=== PATIENT | female | born 1960 | race Two or more races ===

== ENCOUNTER 2017-07-30 13:32 | Inpatient (IN) | payer MEDICAID ==
[~2017-07-30] VITALS: Ht 157.5 cm; Wt 93.3 kg
[2017-07-30 15:08] VITALS: BP 95/59
[2017-07-30] MEDS ORDERED: SODIUM CHLORIDE 0.9% 1,000 ML IV SCH (16:00)
[2017-07-30] MEDS ORDERED: MELO15TA24 PO (16:05)
[2017-07-30] MEDS ORDERED: iron PO (16:05)
[2017-07-30] MEDS ORDERED: SUMA25TA3 PO (16:05)
[2017-07-30] MEDS ORDERED: GABA600T2 PO (16:05)
[2017-07-30] MEDS ORDERED: ZOLP10TA5 PO (16:05)
[2017-07-30] MEDS ORDERED: INSU100I28 SC (16:05)
[2017-07-30] MEDS ORDERED: ESOM40CA PO (16:05)
[2017-07-30] MEDS ORDERED: SERT100T5 PO (16:05)
[2017-07-30] MEDS ORDERED: MORP45CP4 PO (16:05)
[2017-07-30] MEDS ORDERED: PROM25TA10 PO (16:05)
[2017-07-30] MEDS ORDERED: LOSA100T6 PO (16:05)
[2017-07-30] MEDS ORDERED: HYDR-883 PO (16:05)
[2017-07-30 16:10] LABS: BLOOD UREA NITROGEN 42 mg/dL (7-18)
[2017-07-30] MEDS ORDERED: DEXTROSE 50%, 50ML SYRINGE ONE (16:29)
[2017-07-30] MEDS ORDERED: GLUCAGON 1 MG IM PRN (16:30)
[2017-07-30] MEDS ORDERED: DEXTROSE 4 GM TAB.CHEW PO PRN (16:30)
[2017-07-30] MEDS: DEXTROSE 50%, 50ML SYRINGE IVPush PRN (16:33)
[2017-07-30 16:39] LABS: HEMATOCRIT 22.2 % (34.6-47.8); HEMOGLOBIN 6.9 g/dL (11.7-16.4)
[2017-07-30 16:43] LABS: DIFF TOTAL CELLS COUNTED 100 CELL DIFF
[2017-07-30 16:55] LABS: VERIFY COUNTS? YES
[2017-07-30 16:56] LABS: ANISOCYTOSIS 2+; HYPOCHROMIA 2+; MICROCYTOSIS 2+; POLYCHROMASIA 1+
[2017-07-30] MEDS ORDERED: ONDANSETRON 2MG/ML, 2ML IVPush PRN ×2 (17:00→19:00)
[2017-07-30] MEDS ORDERED: DOCUSATE 100 MG CAPSULE PO PRN (17:00)
[2017-07-30] MEDS ORDERED: POLYETHYLENE GLYCOL 17 GM PACKET PO PRN (17:00)
[2017-07-30] MEDS: INSULIN ASPART 100 UNITS/ML, PEN SQ-INSULIN SCH ×2 (17:00→23:00)
[2017-07-30] MEDS ORDERED: D5%-0.9% NACL 1,000 ML IV SCH (17:00)
[2017-07-30] MEDS ORDERED: ACETAMINOPHEN 325 MG TABLET PO PRN ×2 (17:00→19:00)
[2017-07-30] MEDS ORDERED: PHARMACOKINETIC MONITORING MC PRN (17:30)
[2017-07-30] MEDS ORDERED: VANCOMYCIN PER PHARMACY MC PRN (17:30)
[2017-07-30] MEDS ORDERED: OMNIPAQUE 350 MG/ML, 100ML BOTTLE ONE (17:38)
[2017-07-30] MEDS: PIPERACILLIN/TAZO/PMX 3.375GM 50 ML IV SCH (17:56)
[2017-07-30] MEDS ORDERED: VANCOMYCIN 1,700 MG in SODIUM CHLORIDE 0.9% 250 ML IV SCH (18:00)
[2017-07-30 18:10] VITALS: BP 93/49
[2017-07-30 18:19] LABS: FERRITIN 45.4 ng/mL (8-252)
[2017-07-30 18:40] VITALS: BP 87/50
[2017-07-30] MEDS ORDERED: SUCCINYLCHOLINE 20 MG/ML, 10ML ONE (18:56)
[2017-07-30] MEDS ORDERED: ETOMIDATE 20 MG/10 ML ONE ×2 (18:56→19:17)
[2017-07-30] MEDS ORDERED: PHENYLEPHRINE 10 MG/ML ONE (18:56)
[2017-07-30] MEDS ORDERED: EPHEDRINE 50 MG/ML, 1ML IVPush PRN (19:00)
[2017-07-30] MEDS ORDERED: OXYcodone 5 MG/5 ML ORAL.SOL UDC PO PRN (19:00)
[2017-07-30] MEDS ORDERED: FENTANYL PF 100 MCG/2ML IV PRN (19:00)
[2017-07-30] MEDS ORDERED: ALBUTEROL SULFATE 2.5 MG/3 ML NPPB PRN (19:00)
[2017-07-30] MEDS ORDERED: hydrALAzine 20 MG/ML, 1ML IV PRN (19:00)
[2017-07-30] MEDS ORDERED: METOPROLOL 1 MG/ML, 5ML IV PRN (19:00)
[2017-07-30] MEDS ORDERED: LABETALOL 5MG/ML, 20ML IV PRN (19:00)
[2017-07-30] MEDS ORDERED: MEPERIDINE/PF 25MG/0.5ML IVPush PRN (19:00)
[2017-07-30] MEDS ORDERED: HYDROmorphone 1 MG/ML, 1ML IV PRN (19:00)
[2017-07-30] MEDS ORDERED: ROCURONIUM 10 MG/ML,10ML ONE ×2 (19:17→19:53)
[2017-07-30] MEDS ORDERED: MIDAZOLAM 1 MG/ML, 5ML ONE (20:20)
[2017-07-30] MEDS: FERROUS SULFATE 325 MG TABLET PO SCH (21:00)
[2017-07-30] MEDS ORDERED: PROPOFOL 100 ML IV ONE (21:09)
[2017-07-30] MEDS ORDERED: LIDOCAINE-MPF 1%, 2ML ENDO PRN (21:30)
[2017-07-30 22:44] LABS: HEMATOCRIT 33.1 % (34.6-47.8); HEMOGLOBIN 10.4 g/dL (11.7-16.4); WHITE BLOOD COUNT 26.5 x10^3/uL (3.4-10)
[2017-07-30 22:47] LABS: ASPARTATE AMINO TRANSFERASE 58 U/L (15-37); BLOOD UREA NITROGEN 42 mg/dL (7-18)
[2017-07-30 23:01] LABS: DIFF TOTAL CELLS COUNTED 100 CELL DIFF
[2017-07-30 23:04] LABS: ANISOCYTOSIS 2+; MICROCYTOSIS 2+; VERIFY COUNTS? YES
[2017-07-30 23:05] LABS: HYPOCHROMIA 1+; POLYCHROMASIA 1+; TARGET CELLS 1+
[2017-07-31] MEDS: GABAPENTIN 300 MG CAPSULE PO SCH ×4 (00:03→20:57)
[2017-07-31] MEDS: SODIUM CHLORIDE 0.9% 1,000 ML IV SCH ×2 (00:04→05:36)
[2017-07-31] MEDS: PIPERACILLIN/TAZO/PMX 3.375GM 50 ML IV SCH ×5 (00:29→23:23)
[2017-07-31] MEDS: NOREPINEPHRINE 4 MG in SODIUM CHLORIDE 0.9% 246 ML IV PRN ×4 (02:01→16:16)
[2017-07-31 04:24] VITALS: BP 111/45
[2017-07-31 04:36] LABS: ABG COLLECTION SITE LEFT RADIAL; COLLATERAL CIRCULATION TESTING NORMAL
[2017-07-31] MEDS: INSULIN ASPART 100 UNITS/ML, PEN SQ-INSULIN SCH ×4 (05:00→23:00)
[2017-07-31] MEDS: DEXTROSE 50%, 50ML SYRINGE IVPush PRN (05:11)
[2017-07-31] MEDS: PROPOFOL 100 ML IV PRN (05:50)
[2017-07-31 06:00] LABS: HEMOGLOBIN 9.4 g/dL (11.7-16.4); WHITE BLOOD COUNT 44.4 x10^3/uL (3.4-10)
[2017-07-31 06:20] LABS: DIFF TOTAL CELLS COUNTED 100 CELL DIFF
[2017-07-31 06:22] LABS: VERIFY COUNTS? YES
[2017-07-31 06:23] LABS: ANISOCYTOSIS 1+; HYPOCHROMIA 2+; MICROCYTOSIS 1+; POLYCHROMASIA 1+
[2017-07-31 06:24] LABS: POIKILOCYTOSIS 1+; TARGET CELLS 1+
[2017-07-31 06:30] LABS: ASPARTATE AMINO TRANSFERASE 51 U/L (15-37); BLOOD UREA NITROGEN 41 mg/dL (7-18)
[2017-07-31] MEDS ORDERED: SODIUM CHLORIDE 0.9% 1,000ML IVBOLUS ONE ×2 (08:00→23:00)
[2017-07-31] MEDS: CLINDAMYCIN PMX 900MG/50ML 50 ML IV SCH ×2 (08:30→16:11)
[2017-07-31] MEDS: FERROUS SULFATE 325 MG TABLET PO SCH ×3 (09:00→20:56)
[2017-07-31] MEDS: SENNA/DOCUSATE TABLET PO SCH (09:00)
[2017-07-31] MEDS: SERTRALINE 100MG TABLET PO SCH (09:00)
[2017-07-31] MEDS ORDERED: THIAMINE 100 MG, FOLIC ACID 1 MG, MVI ADULT 10 ML in SODIUM CHLORIDE 0.9% 1,000 ML IV SCH (09:30)
[2017-07-31 09:55] LABS: BLOOD UREA NITROGEN 39 mg/dL (7-18)
[2017-07-31] MEDS: VANCOMYCIN 1,700 MG in SODIUM CHLORIDE 0.9% 250 ML IV SCH (14:38)
[2017-07-31] MEDS: PANTOPRAZOLE 40 MG IV IVPush SCH (16:13)
[2017-07-31] MEDS ORDERED: NACL IV SCH ×2 (16:30)
[2017-07-31] MEDS ORDERED: THIAMINE IV SCH ×2 (16:30)
[2017-07-31] MEDS ORDERED: MVI ADULT IV SCH ×2 (16:30)
[2017-07-31] MEDS ORDERED: D5 IV SCH ×2 (16:30)
[2017-07-31] MEDS ORDERED: FOLIC ACID IV SCH ×2 (16:30)
[2017-07-31] MEDS: NOREPINEPHRINE 8 MG in SODIUM CHLORIDE 0.9% 242 ML IV PRN ×3 (18:04→23:27)
[2017-07-31] MEDS: D5%-0.9% NACL 1,000 ML IV SCH (20:00)
[2017-07-31] MEDS: ENOXAPARIN 40 MG/0.4 ML SQ SCH (20:20)
[2017-07-31] MEDS ORDERED: VASOPRESSIN 100 UNIT in SODIUM CHLORIDE 0.9% 495 ML IV PRN (23:00)
[2017-07-31] MEDS ORDERED: NOREPINEPHRINE 4 MG in SODIUM CHLORIDE 0.9% 246 ML IV PRN (23:30)
[2017-08-01] MEDS: CLINDAMYCIN PMX 900MG/50ML 50 ML IV SCH ×3 (00:17→16:16)
[2017-08-01] MEDS: PROPOFOL 100 ML IV PRN ×2 (00:19→14:55)
[2017-08-01 03:32] LABS: BLOOD UREA NITROGEN 32 mg/dL (7-18)
[2017-08-01 03:33] LABS: ASPARTATE AMINO TRANSFERASE 48 U/L (15-37)
[2017-08-01 03:35] LABS: HEMATOCRIT 24.8 % (34.6-47.8); HEMOGLOBIN 8.2 g/dL (11.7-16.4); WHITE BLOOD COUNT 37.5 x10^3/uL (3.4-10)
[2017-08-01] MEDS: D5%-0.9% NACL 1,000 ML IV SCH (03:37)
[2017-08-01 03:55] LABS: DIFF TOTAL CELLS COUNTED 100 CELL DIFF
[2017-08-01 03:58] LABS: ANISOCYTOSIS 1+; HYPOCHROMIA 2+; MICROCYTOSIS 1+; POIKILOCYTOSIS 1+; POLYCHROMASIA 1+; TARGET CELLS 1+; VERIFY COUNTS? YES
[2017-08-01 04:15] LABS: ABG COLLECTION SITE RIGHT RADIAL; COLLATERAL CIRCULATION TESTING NORMAL
[2017-08-01] MEDS: NOREPINEPHRINE 8 MG in SODIUM CHLORIDE 0.9% 242 ML IV PRN ×4 (04:15→19:36)
[2017-08-01] MEDS ORDERED: NOREPINEPHRINE 8 MG in SODIUM CHLORIDE 0.9% 242 ML IV PRN (04:30)
[2017-08-01 04:33] VITALS: BP 136/51
[2017-08-01] MEDS: PIPERACILLIN/TAZO/PMX 3.375GM 50 ML IV SCH ×4 (05:21→23:14)
[2017-08-01] MEDS: INSULIN ASPART 100 UNITS/ML, PEN SQ-INSULIN SCH ×4 (05:44→17:38)
[2017-08-01] MEDS: FERROUS SULFATE 220 MG/5 ML ORAL SOL PO SCH ×3 (11:13→21:01)
[2017-08-01] MEDS: GABAPENTIN 250 MG/5 ML ORAL SOL PO SCH ×3 (11:13→21:01)
[2017-08-01] MEDS: SENNA/DOCUSATE TABLET PO SCH (11:13)
[2017-08-01] MEDS: PANTOPRAZOLE 40 MG IV IVPush SCH (11:13)
[2017-08-01] MEDS: SERTRALINE 100MG TABLET PO SCH (11:14)
[2017-08-01] MEDS: NACL IV SCH (11:17)
[2017-08-01] MEDS: THIAMINE IV SCH (11:17)
[2017-08-01] MEDS: FOLIC ACID IV SCH (11:17)
[2017-08-01] MEDS: D5 IV SCH (11:17)
[2017-08-01] MEDS: SODIUM CHLORIDE 0.9% 1,000 ML IV SCH ×2 (11:17→19:00)
[2017-08-01] MEDS: MVI ADULT IV SCH (11:17)
[2017-08-01] MEDS: VANCOMYCIN 1,700 MG in SODIUM CHLORIDE 0.9% 250 ML IV SCH (11:36)
[2017-08-01] MEDS: morphine SULFATE 10 MG/ML, 1ML IVPush PRN (13:33)
[2017-08-01] MEDS: ENOXAPARIN 40 MG/0.4 ML SQ SCH (19:38)
[2017-08-02] MEDS: CLINDAMYCIN PMX 900MG/50ML 50 ML IV SCH ×3 (00:20→16:24)
[2017-08-02 04:00] VITALS: BP 123/59
[2017-08-02 04:13] LABS: ASPARTATE AMINO TRANSFERASE 45 U/L (15-37); BLOOD UREA NITROGEN 27 mg/dL (7-18); HEMOGLOBIN 8.2 g/dL (11.7-16.4)
[2017-08-02 04:48] LABS: ABG COLLECTION SITE LEFT BRACHIAL
[2017-08-02 05:27] LABS: DIFF TOTAL CELLS COUNTED 100 CELL DIFF
[2017-08-02 05:30] LABS: ANISOCYTOSIS 1+; HYPOCHROMIA 2+; MICROCYTOSIS 1+; POIKILOCYTOSIS 1+; POLYCHROMASIA 1+; TARGET CELLS 1+; VERIFY COUNTS? YES
[2017-08-02] MEDS: INSULIN ASPART 100 UNITS/ML, PEN SQ-INSULIN SCH ×4 (05:48→23:13)
[2017-08-02] MEDS: SODIUM CHLORIDE 0.9% 1,000 ML IV SCH (05:50)
[2017-08-02] MEDS: PIPERACILLIN/TAZO/PMX 3.375GM 50 ML IV SCH ×4 (05:52→23:07)
[2017-08-02] MEDS: GABAPENTIN 250 MG/5 ML ORAL SOL PO SCH ×3 (07:51→21:33)
[2017-08-02] MEDS: SERTRALINE 100MG TABLET PO SCH (07:51)
[2017-08-02] MEDS: PANTOPRAZOLE 40 MG IV IVPush SCH (07:51)
[2017-08-02] MEDS: SENNA/DOCUSATE TABLET PO SCH (07:51)
[2017-08-02] MEDS: NOREPINEPHRINE 8 MG in SODIUM CHLORIDE 0.9% 242 ML IV PRN (07:51)
[2017-08-02] MEDS: FERROUS SULFATE 220 MG/5 ML ORAL SOL PO SCH ×3 (07:51→21:33)
[2017-08-02] MEDS: THIAMINE IV SCH ×2 (08:43→09:43)
[2017-08-02] MEDS: MVI ADULT IV SCH ×2 (08:43→09:43)
[2017-08-02] MEDS: NACL IV SCH (08:43)
[2017-08-02] MEDS: D5 IV SCH (08:43)
[2017-08-02] MEDS: FOLIC ACID IV SCH (08:43)
[2017-08-02] MEDS: VANCOMYCIN 50 MG/ML ORAL SUSP PO SCH ×3 (09:43→21:33)
[2017-08-02] MEDS: SODIUM CHLORIDE IV SCH (09:43)
[2017-08-02] MEDS ORDERED: [UNRECOGNIZED DRUG - REMARK] XX PRN (10:30)
[2017-08-02] MEDS: morphine SULFATE 10 MG/ML, 1ML IVPush PRN (13:56)
[2017-08-02] MEDS ORDERED: SODIUM CHLORIDE 0.9%, 500ML IVBOLUS ONE (15:00)
[2017-08-02] MEDS: ENOXAPARIN 40 MG/0.4 ML SQ SCH (19:51)
[2017-08-03] MEDS: CLINDAMYCIN PMX 900MG/50ML 50 ML IV SCH ×3 (00:12→16:40)
[2017-08-03] MEDS: VANCOMYCIN 50 MG/ML ORAL SUSP PO SCH (03:54)
[2017-08-03] MEDS: SODIUM CHLORIDE 0.9% 1,000 ML IV SCH ×3 (03:54→21:33)
[2017-08-03 05:12] LABS: ABG COLLECTION SITE RIGHT RADIAL; COLLATERAL CIRCULATION TESTING NORMAL
[2017-08-03 05:27] LABS: HEMATOCRIT 24.5 % (34.6-47.8); WHITE BLOOD COUNT 20.3 x10^3/uL (3.4-10)
[2017-08-03 05:34] LABS: BLOOD UREA NITROGEN 29 mg/dL (7-18)
[2017-08-03] MEDS: PIPERACILLIN/TAZO/PMX 3.375GM 50 ML IV SCH ×4 (05:36→23:04)
[2017-08-03 05:38] LABS: ASPARTATE AMINO TRANSFERASE 42 U/L (15-37)
[2017-08-03] MEDS: INSULIN ASPART 100 UNITS/ML, PEN SQ-INSULIN SCH ×4 (05:42→23:00)
[2017-08-03 05:48] LABS: DIFF TOTAL CELLS COUNTED 100 CELL DIFF
[2017-08-03 05:50] LABS: VERIFY COUNTS? YES
[2017-08-03 05:51] LABS: ANISOCYTOSIS 1+; HYPOCHROMIA 2+; MICROCYTOSIS 1+; POIKILOCYTOSIS 1+; POLYCHROMASIA 1+; TARGET CELLS 1+
[2017-08-03] MEDS: SENNA/DOCUSATE TABLET PO SCH (08:55)
[2017-08-03] MEDS: GABAPENTIN 250 MG/5 ML ORAL SOL PO SCH ×3 (08:57→20:24)
[2017-08-03] MEDS: FERROUS SULFATE 220 MG/5 ML ORAL SOL PO SCH ×3 (08:57→20:25)
[2017-08-03] MEDS: PANTOPRAZOLE 40 MG IV IVPush SCH (08:57)
[2017-08-03] MEDS: SERTRALINE 100MG TABLET PO SCH (08:58)
[2017-08-03] MEDS ORDERED: SODIUM CHLORIDE 0.9%, 500ML IVBOLUS ONE ×2 (09:30→12:30)
[2017-08-03] MEDS: ALBUMIN HUMAN 25% 100 ML IV SCH ×2 (09:34→17:47)
[2017-08-03] MEDS: MVI ADULT IV SCH (11:52)
[2017-08-03] MEDS: SODIUM CHLORIDE IV SCH (11:52)
[2017-08-03] MEDS: THIAMINE IV SCH (11:52)
[2017-08-03 12:40] LABS: 027-NAP1-BI Presumpt Negative (Negative)
[2017-08-03] MEDS: CHOLESTYRAMINE 4GM PACKET PO SCH ×2 (14:13→20:25)
[2017-08-03] MEDS: morphine SULFATE 10 MG/ML, 1ML IVPush PRN (17:14)
[2017-08-03] MEDS: ENOXAPARIN 40 MG/0.4 ML SQ SCH (20:24)
[2017-08-04] MEDS: CLINDAMYCIN PMX 900MG/50ML 50 ML IV SCH ×3 (00:05→16:42)
[2017-08-04] MEDS: ALBUMIN HUMAN 25% 100 ML IV SCH ×3 (01:44→17:52)
[2017-08-04] MEDS: morphine SULFATE 10 MG/ML, 1ML IVPush PRN ×3 (02:24→08:55)
[2017-08-04 04:16] LABS: ABG COLLECTION SITE RIGHT BRACHIAL
[2017-08-04 04:46] LABS: BLOOD UREA NITROGEN 31 mg/dL (7-18)
[2017-08-04 04:49] LABS: WHITE BLOOD COUNT 11.4 x10^3/uL (3.4-10)
[2017-08-04 04:56] LABS: HEMATOCRIT 21.1 % (34.6-47.8); HEMOGLOBIN 6.8 g/dL (11.7-16.4)
[2017-08-04] MEDS: SODIUM CHLORIDE 0.9% 1,000 ML IV SCH ×2 (05:18→22:00)
[2017-08-04] MEDS: PIPERACILLIN/TAZO/PMX 3.375GM 50 ML IV SCH (05:19)
[2017-08-04] MEDS: INSULIN ASPART 100 UNITS/ML, PEN SQ-INSULIN SCH ×4 (05:26→22:36)
[2017-08-04 05:37] LABS: DIFF TOTAL CELLS COUNTED 100 CELL DIFF
[2017-08-04 05:40] LABS: ANISOCYTOSIS 1+; HYPOCHROMIA 2+; MICROCYTOSIS 1+; POLYCHROMASIA 1+; TARGET CELLS 1+; VERIFY COUNTS? YES
[2017-08-04 05:41] LABS: POIKILOCYTOSIS 1+
[2017-08-04 05:59] LABS: WHITE BLOOD COUNT 12.2 x10^3/uL (3.4-10)
[2017-08-04 06:03] LABS: HEMATOCRIT 21.2 % (34.6-47.8); HEMOGLOBIN 6.9 g/dL (11.7-16.4)
[2017-08-04] MEDS: SENNA/DOCUSATE TABLET PO SCH (08:26)
[2017-08-04 08:53] VITALS: BP 113/52
[2017-08-04] MEDS: PANTOPRAZOLE 40 MG IV IVPush SCH (08:57)
[2017-08-04] MEDS: FERROUS SULFATE 220 MG/5 ML ORAL SOL PO SCH ×3 (08:57→20:52)
[2017-08-04] MEDS: SERTRALINE 100MG TABLET PO SCH (08:57)
[2017-08-04] MEDS: GABAPENTIN 250 MG/5 ML ORAL SOL PO SCH ×3 (08:57→20:52)
[2017-08-04 09:04] VITALS: BP 112/58
[2017-08-04 09:28] VITALS: BP 117/58
[2017-08-04 10:27] VITALS: BP 129/66
[2017-08-04] MEDS: CHOLESTYRAMINE 4GM PACKET PO SCH ×2 (10:40→20:53)
[2017-08-04] MEDS: AMPICILLIN/SULBACTAM 3 GM in SODIUM CHLORIDE 0.9% 100 ML IV SCH ×2 (11:06→19:27)
[2017-08-04] MEDS: SODIUM CHLORIDE IV SCH (11:27)
[2017-08-04] MEDS: THIAMINE IV SCH (11:27)
[2017-08-04] MEDS: MVI ADULT IV SCH (11:27)
[2017-08-04 11:28] VITALS: BP 123/65
[2017-08-04] MEDS: HYDROcodone/APAP 5/325 TABLET PO PRN (19:50)
[2017-08-04] MEDS: ENOXAPARIN 40 MG/0.4 ML SQ SCH (20:52)
[2017-08-05] MEDS: CLINDAMYCIN PMX 900MG/50ML 50 ML IV SCH ×3 (00:08→16:02)
[2017-08-05] MEDS: SODIUM CHLORIDE 0.9% 1,000 ML IV SCH ×2 (00:09→22:24)
[2017-08-05] MEDS: ALBUMIN HUMAN 25% 100 ML IV SCH ×3 (01:18→17:08)
[2017-08-05] MEDS: HYDROcodone/APAP 5/325 TABLET PO PRN ×2 (01:54→04:40)
[2017-08-05 04:02] LABS: WHITE BLOOD COUNT 9.3 x10^3/uL (3.4-10)
[2017-08-05 04:03] LABS: HEMATOCRIT 21.3 % (34.6-47.8); HEMOGLOBIN 6.9 g/dL (11.7-16.4)
[2017-08-05 04:08] LABS: BLOOD UREA NITROGEN 32 mg/dL (7-18)
[2017-08-05] MEDS: AMPICILLIN/SULBACTAM 3 GM in SODIUM CHLORIDE 0.9% 100 ML IV SCH ×3 (04:20→19:57)
[2017-08-05 04:33] VITALS: BP 126/62
[2017-08-05 04:45] VITALS: BP 124/62
[2017-08-05] MEDS: INSULIN ASPART 100 UNITS/ML, PEN SQ-INSULIN SCH ×4 (04:50→22:27)
[2017-08-05 04:53] LABS: ABG COLLECTION SITE RIGHT BRACHIAL
[2017-08-05 06:58] VITALS: BP 112/55
[2017-08-05] MEDS: SENNA/DOCUSATE TABLET PO SCH (07:02)
[2017-08-05] MEDS: GABAPENTIN 250 MG/5 ML ORAL SOL PO SCH ×3 (07:29→21:38)
[2017-08-05] MEDS: PANTOPRAZOLE 40 MG IV IVPush SCH (07:29)
[2017-08-05] MEDS: FERROUS SULFATE 220 MG/5 ML ORAL SOL PO SCH ×3 (07:30→21:38)
[2017-08-05] MEDS: SERTRALINE 100MG TABLET PO SCH (07:30)
[2017-08-05] MEDS: morphine SULFATE 10 MG/ML, 1ML IVPush PRN ×2 (07:30→10:57)
[2017-08-05 07:39] VITALS: BP 117/57
[2017-08-05] MEDS: CHOLESTYRAMINE 4GM PACKET PO SCH (09:37)
[2017-08-05] MEDS: MVI ADULT IV SCH (10:03)
[2017-08-05] MEDS: THIAMINE IV SCH (10:03)
[2017-08-05] MEDS: SODIUM CHLORIDE IV SCH (10:03)
[2017-08-05] MEDS ORDERED: MIDAZOLAM 1 MG/ML, 5ML IVPush ONE (10:40)
[2017-08-05] MEDS ORDERED: ETOMIDATE 20 MG/10 ML IVPush ONE (10:40)
[2017-08-05] MEDS ORDERED: MIDAZOLAM 1 MG/ML, 5ML ONE (11:06)
[2017-08-05] MEDS ORDERED: ETOMIDATE 20 MG/10 ML ONE (11:06)
[2017-08-05 11:44] LABS: ABG COLLECTION SITE RIGHT RADIAL; COLLATERAL CIRCULATION TESTING NORMAL
[2017-08-05] MEDS ORDERED: ACETAMINOPHEN 325 MG TABLET PO PRN (20:30)
[2017-08-05] MEDS ORDERED: GLUCAGON 1 MG IM PRN (20:30)
[2017-08-05] MEDS ORDERED: ONDANSETRON 2MG/ML, 2ML IVPush PRN (20:30)
[2017-08-05] MEDS ORDERED: POLYETHYLENE GLYCOL 17 GM PACKET PO PRN (20:30)
[2017-08-05] MEDS ORDERED: [UNRECOGNIZED DRUG - REMARK] XX PRN (20:30)
[2017-08-05] MEDS ORDERED: DEXTROSE 4 GM TAB.CHEW PO PRN (20:30)
[2017-08-05] MEDS: ENOXAPARIN 40 MG/0.4 ML SQ SCH (20:31)
[2017-08-05] MEDS: PROPOFOL 100 ML IV PRN (20:31)
[2017-08-06] MEDS: CLINDAMYCIN PMX 900MG/50ML 50 ML IV SCH ×3 (00:59→16:21)
[2017-08-06] MEDS: CHOLESTYRAMINE 4GM PACKET PO SCH ×3 (00:59→19:58)
[2017-08-06] MEDS: ALBUMIN HUMAN 25% 100 ML IV SCH ×3 (03:02→16:21)
[2017-08-06] MEDS: AMPICILLIN/SULBACTAM 3 GM in SODIUM CHLORIDE 0.9% 100 ML IV SCH ×4 (04:20→23:49)
[2017-08-06 04:21] VITALS: BP 115/55
[2017-08-06 04:22] LABS: ABG COLLECTION SITE RIGHT BRACHIAL
[2017-08-06] MEDS: INSULIN ASPART 100 UNITS/ML, PEN SQ-INSULIN SCH ×4 (05:28→23:49)
[2017-08-06 05:54] LABS: HEMATOCRIT 25.1 % (34.6-47.8); HEMOGLOBIN 8.2 g/dL (11.7-16.4); WHITE BLOOD COUNT 9.8 x10^3/uL (3.4-10)
[2017-08-06] MEDS ORDERED: MAGNESIUM SULFATE PMX 4GM/100M 100 ML IV ONE (08:00)
[2017-08-06] MEDS: FERROUS SULFATE 220 MG/5 ML ORAL SOL PO SCH ×3 (08:43→19:58)
[2017-08-06] MEDS: SERTRALINE 100MG TABLET PO SCH (08:44)
[2017-08-06] MEDS: PANTOPRAZOLE 40 MG IV IVPush SCH (08:44)
[2017-08-06] MEDS: GABAPENTIN 250 MG/5 ML ORAL SOL PO SCH ×3 (08:46→19:58)
[2017-08-06] MEDS: SENNA/DOCUSATE TABLET PO SCH (08:47)
[2017-08-06] MEDS: SODIUM CHLORIDE 0.9% 1,000 ML IV SCH (08:49)
[2017-08-06 09:00] VITALS: BP 147/70
[2017-08-06 11:10] LABS: BLOOD UREA NITROGEN 28 mg/dL (7-18)
[2017-08-06] MEDS: SODIUM CHLORIDE IV SCH (11:15)
[2017-08-06] MEDS: THIAMINE IV SCH (11:15)
[2017-08-06] MEDS: MVI ADULT IV SCH (11:15)
[2017-08-06] MEDS: POTASSIUM CHLORIDE 10% 20 MEQ/15 ML UDC PO SCH ×2 (11:16→19:58)
[2017-08-06] MEDS: morphine SULFATE 10 MG/ML, 1ML IVPush PRN (11:25)
[2017-08-06] MEDS: PROPOFOL 100 ML IV PRN (15:17)
[2017-08-06] MEDS: FUROSEMIDE 20 MG/2 ML IV SCH (18:22)
[2017-08-06] MEDS: HYDROcodone/APAP 5/325 TABLET PO PRN ×2 (19:57→23:49)
[2017-08-06] MEDS: ENOXAPARIN 40 MG/0.4 ML SQ SCH (19:58)
[2017-08-07] MEDS: CLINDAMYCIN PMX 900MG/50ML 50 ML IV SCH ×3 (00:46→16:52)
[2017-08-07] MEDS: ALBUMIN HUMAN 25% 100 ML IV SCH ×2 (02:37→16:50)
[2017-08-07] MEDS: HYDROcodone/APAP 5/325 TABLET PO PRN (04:16)
[2017-08-07 04:43] LABS: BLOOD UREA NITROGEN 26 mg/dL (7-18)
[2017-08-07] MEDS: INSULIN ASPART 100 UNITS/ML, PEN SQ-INSULIN SCH ×3 (05:27→17:10)
[2017-08-07 05:31] LABS: ABG COLLECTION SITE RIGHT RADIAL; COLLATERAL CIRCULATION TESTING NORMAL
[2017-08-07 05:59] LABS: HEMOGLOBIN 7.4 g/dL (11.7-16.4); WHITE BLOOD COUNT 8.5 x10^3/uL (3.4-10)
[2017-08-07] MEDS: AMPICILLIN/SULBACTAM 3 GM in SODIUM CHLORIDE 0.9% 100 ML IV SCH ×3 (06:09→18:22)
[2017-08-07] MEDS: FUROSEMIDE 20 MG/2 ML IV SCH ×2 (07:54→16:52)
[2017-08-07] MEDS: PANTOPRAZOLE 40 MG IV IVPush SCH (07:54)
[2017-08-07 09:00] VITALS: BP 123/61
[2017-08-07] MEDS: SENNA/DOCUSATE TABLET PO SCH (09:00)
[2017-08-07] MEDS: POTASSIUM CHLORIDE 10% 20 MEQ/15 ML UDC PO SCH ×2 (09:08→19:40)
[2017-08-07] MEDS: FERROUS SULFATE 220 MG/5 ML ORAL SOL PO SCH ×3 (09:09→19:40)
[2017-08-07] MEDS: CHOLESTYRAMINE 4GM PACKET PO SCH ×2 (09:10→19:40)
[2017-08-07] MEDS: SERTRALINE 100MG TABLET PO SCH (09:10)
[2017-08-07] MEDS: GABAPENTIN 250 MG/5 ML ORAL SOL PO SCH ×3 (09:10→19:40)
[2017-08-07] MEDS ORDERED: ALBUTEROL/IPRATROPIUM 2.5MG/0.5MG, 3 ML NPPB SCH (11:00)
[2017-08-07] MEDS: THIAMINE IV SCH (11:21)
[2017-08-07] MEDS: SODIUM CHLORIDE IV SCH (11:21)
[2017-08-07] MEDS: MVI ADULT IV SCH (11:21)
[2017-08-07] MEDS ORDERED: SODIUM BICARBONATE 4.2%, 5ML NPPB SCH (15:30)
[2017-08-07] MEDS: SODIUM BICARBONATE 4.2%, 5ML NPPB SCH ×2 (19:00→22:33)
[2017-08-07] MEDS: ALBUTEROL/IPRATROPIUM 2.5MG/0.5MG, 3 ML NPPB SCH ×2 (19:00→22:32)
[2017-08-07] MEDS: ENOXAPARIN 40 MG/0.4 ML SQ SCH (19:40)
[2017-08-08] MEDS: INSULIN ASPART 100 UNITS/ML, PEN SQ-INSULIN SCH ×5 (00:51→22:49)
[2017-08-08] MEDS: AMPICILLIN/SULBACTAM 3 GM in SODIUM CHLORIDE 0.9% 100 ML IV SCH ×4 (00:51→20:12)
[2017-08-08] MEDS: CLINDAMYCIN PMX 900MG/50ML 50 ML IV SCH (00:51)
[2017-08-08] MEDS: ALBUTEROL/IPRATROPIUM 2.5MG/0.5MG, 3 ML NPPB SCH ×3 (01:23→11:50)
[2017-08-08] MEDS: SODIUM BICARBONATE 4.2%, 5ML NPPB SCH ×2 (03:00→07:00)
[2017-08-08 04:40] LABS: ABG COLLECTION SITE RIGHT RADIAL; COLLATERAL CIRCULATION TESTING NORMAL
[2017-08-08] MEDS: ALBUMIN HUMAN 25% 100 ML IV SCH ×2 (04:55→15:18)
[2017-08-08 04:58] LABS: HEMATOCRIT 23.7 % (34.6-47.8); HEMOGLOBIN 7.8 g/dL (11.7-16.4); WHITE BLOOD COUNT 8.1 x10^3/uL (3.4-10)
[2017-08-08 05:06] LABS: BLOOD UREA NITROGEN 22 mg/dL (7-18)
[2017-08-08 07:45] VITALS: BP 164/81
[2017-08-08] MEDS: SENNA/DOCUSATE TABLET PO SCH (08:24)
[2017-08-08] MEDS: POTASSIUM CHLORIDE 10% 20 MEQ/15 ML UDC PO SCH ×2 (09:57→20:12)
[2017-08-08] MEDS: SERTRALINE 100MG TABLET PO SCH (09:57)
[2017-08-08] MEDS: CHOLESTYRAMINE 4GM PACKET PO SCH ×2 (09:57→20:12)
[2017-08-08] MEDS: FERROUS SULFATE 220 MG/5 ML ORAL SOL PO SCH ×3 (09:57→20:12)
[2017-08-08] MEDS: MULTIVITAMIN LIQUID NG SCH (09:57)
[2017-08-08] MEDS: GABAPENTIN 250 MG/5 ML ORAL SOL PO SCH ×3 (09:57→20:12)
[2017-08-08] MEDS: THIAMINE 100MG TABLET NG SCH (09:57)
[2017-08-08] MEDS: FUROSEMIDE 20 MG/2 ML IV SCH ×2 (09:58→17:00)
[2017-08-08] MEDS: PANTOPRAZOLE 40 MG IV IVPush SCH (09:58)
[2017-08-08] MEDS: FOLIC ACID 1 MG TABLET NG SCH (09:59)
[2017-08-08] MEDS ORDERED: ACETYLCYSTEINE 20%, 4ML NPPB SCH (11:00)
[2017-08-08] MEDS ORDERED: ACETYLCYSTEINE 10%, 4ML NPPB SCH ×2 (11:00→11:30)
[2017-08-08 12:03] LABS: ABG COLLECTION SITE RIGHT BRACHIAL; COLLATERAL CIRCULATION TESTING NORMAL
[2017-08-08] MEDS ORDERED: ALBUTEROL/IPRATROPIUM 2.5MG/0.5MG, 3 ML IPPB SCH (15:00)
[2017-08-08] MEDS ORDERED: ACETYLCYSTEINE 10%, 4ML IPPB SCH (15:00)
[2017-08-08] MEDS: ALBUTEROL/IPRATROPIUM 2.5MG/0.5MG, 3 ML INLINE SCH ×2 (15:15→19:57)
[2017-08-08] MEDS: ACETYLCYSTEINE 10%, 4ML NPPB SCH (19:57)
[2017-08-08] MEDS: ENOXAPARIN 40 MG/0.4 ML SQ SCH (20:12)
[2017-08-09] MEDS: AMPICILLIN/SULBACTAM 3 GM in SODIUM CHLORIDE 0.9% 100 ML IV SCH ×4 (02:37→21:21)
[2017-08-09] MEDS: ACETYLCYSTEINE 10%, 4ML NPPB SCH ×4 (03:00→20:04)
[2017-08-09] MEDS: ALBUTEROL/IPRATROPIUM 2.5MG/0.5MG, 3 ML INLINE SCH ×6 (03:00→22:20)
[2017-08-09] MEDS ORDERED: hydrALAzine 20 MG/ML, 1ML IV PRN (03:00)
[2017-08-09 04:19] LABS: ABG COLLECTION SITE RIGHT RADIAL; COLLATERAL CIRCULATION TESTING NORMAL
[2017-08-09] MEDS: INSULIN ASPART 100 UNITS/ML, PEN SQ-INSULIN SCH (04:38)
[2017-08-09] MEDS: ALBUMIN HUMAN 25% 100 ML IV SCH ×2 (04:38→16:25)
[2017-08-09 05:01] LABS: HEMATOCRIT 24.1 % (34.6-47.8); HEMOGLOBIN 7.7 g/dL (11.7-16.4); WHITE BLOOD COUNT 10.3 x10^3/uL (3.4-10)
[2017-08-09 05:13] LABS: FIO2 40 %
[2017-08-09 05:19] LABS: BLOOD UREA NITROGEN 21 mg/dL (7-18)
[2017-08-09] MEDS: CHOLESTYRAMINE 4GM PACKET PO SCH ×2 (08:26→20:53)
[2017-08-09] MEDS: FUROSEMIDE 20 MG/2 ML IV SCH ×2 (08:26→17:09)
[2017-08-09] MEDS: PANTOPRAZOLE 40 MG IV IVPush SCH (08:31)
[2017-08-09] MEDS: SENNA/DOCUSATE TABLET PO SCH (09:00)
[2017-08-09] MEDS: THIAMINE 100MG TABLET NG SCH (09:54)
[2017-08-09] MEDS: FOLIC ACID 1 MG TABLET NG SCH (09:55)
[2017-08-09] MEDS: LOSARTAN 50MG TABLET PO SCH (09:55)
[2017-08-09] MEDS: SERTRALINE 100MG TABLET PO SCH (09:55)
[2017-08-09] MEDS: GABAPENTIN 250 MG/5 ML ORAL SOL PO SCH ×3 (09:55→20:53)
[2017-08-09] MEDS: POTASSIUM CHLORIDE 10% 20 MEQ/15 ML UDC PO SCH ×2 (09:55→20:53)
[2017-08-09] MEDS: FERROUS SULFATE 220 MG/5 ML ORAL SOL PO SCH ×3 (09:55→20:53)
[2017-08-09] MEDS: MULTIVITAMIN LIQUID NG SCH (09:56)
[2017-08-09] MEDS: INSULIN DETEMIR 100 UNITS/ML, PEN SQ-INSULIN SCH ×2 (10:13→20:54)
[2017-08-09] MEDS: INSULIN ASPART 100 UNITS/ML, 3ML PEN HIGH DOSE SS SQ-INSULIN SCH ×3 (10:13→23:42)
[2017-08-09] MEDS: morphine SULFATE 10 MG/ML, 1ML IVPush PRN ×2 (11:22→11:32)
[2017-08-09] MEDS: ENOXAPARIN 40 MG/0.4 ML SQ SCH (20:53)
[2017-08-09] MEDS: HYDROcodone/APAP 5/325 TABLET PO PRN (20:54)
[2017-08-10] MEDS: ALBUTEROL/IPRATROPIUM 2.5MG/0.5MG, 3 ML INLINE SCH ×6 (02:27→22:30)
[2017-08-10] MEDS: ACETYLCYSTEINE 10%, 4ML NPPB SCH ×4 (02:27→22:30)
[2017-08-10] MEDS: AMPICILLIN/SULBACTAM 3 GM in SODIUM CHLORIDE 0.9% 100 ML IV SCH ×4 (03:32→20:37)
[2017-08-10 04:34] LABS: ABG COLLECTION SITE LEFT RADIAL; COLLATERAL CIRCULATION TESTING NORMAL
[2017-08-10 04:49] LABS: HEMATOCRIT 23.9 % (34.6-47.8); HEMOGLOBIN 7.5 g/dL (11.7-16.4); WHITE BLOOD COUNT 11.1 x10^3/uL (3.4-10)
[2017-08-10 05:06] LABS: ASPARTATE AMINO TRANSFERASE 27 U/L (15-37); BLOOD UREA NITROGEN 22 mg/dL (7-18)
[2017-08-10] MEDS: INSULIN ASPART 100 UNITS/ML, 3ML PEN HIGH DOSE SS SQ-INSULIN SCH ×4 (05:29→23:11)
[2017-08-10] MEDS: ALBUMIN HUMAN 25% 100 ML IV SCH ×2 (05:29→16:23)
[2017-08-10 05:40] LABS: ANISOCYTOSIS 2+; HYPOCHROMIA 2+; MICROCYTOSIS 1+; POLYCHROMASIA 1+
[2017-08-10 05:41] LABS: TARGET CELLS 1+
[2017-08-10 05:42] LABS: SPHEROCYTES 1+
[2017-08-10 05:44] LABS: OVALOCYTES 1+
[2017-08-10] MEDS: FUROSEMIDE 20 MG/2 ML IV SCH ×2 (08:45→18:20)
[2017-08-10] MEDS: SENNA/DOCUSATE TABLET PO SCH (09:00)
[2017-08-10] MEDS: INSULIN DETEMIR 100 UNITS/ML, PEN SQ-INSULIN SCH ×2 (09:00→20:48)
[2017-08-10] MEDS: MULTIVITAMIN LIQUID NG SCH (11:01)
[2017-08-10] MEDS: morphine SULFATE 10 MG/ML, 1ML IVPush PRN (11:01)
[2017-08-10] MEDS: SERTRALINE 100MG TABLET PO SCH (11:01)
[2017-08-10] MEDS: PANTOPRAZOLE 40 MG IV IVPush SCH (11:01)
[2017-08-10] MEDS: THIAMINE 100MG TABLET NG SCH (11:02)
[2017-08-10] MEDS: LOSARTAN 50MG TABLET PO SCH (11:02)
[2017-08-10] MEDS: FOLIC ACID 1 MG TABLET NG SCH (11:02)
[2017-08-10] MEDS: FERROUS SULFATE 220 MG/5 ML ORAL SOL PO SCH ×3 (11:02→20:34)
[2017-08-10] MEDS: POTASSIUM CHLORIDE 10% 20 MEQ/15 ML UDC PO SCH ×2 (11:03→20:34)
[2017-08-10] MEDS: CHOLESTYRAMINE 4GM PACKET PO SCH ×2 (11:03→20:34)
[2017-08-10] MEDS: GABAPENTIN 250 MG/5 ML ORAL SOL PO SCH ×3 (11:03→20:34)
[2017-08-10] MEDS: HYDROcodone/APAP 5/325 TABLET PO PRN (13:56)
[2017-08-10] MEDS: ENOXAPARIN 40 MG/0.4 ML SQ SCH (20:33)
[2017-08-11] MEDS: ALBUTEROL/IPRATROPIUM 2.5MG/0.5MG, 3 ML INLINE SCH ×6 (02:33→23:40)
[2017-08-11] MEDS: AMPICILLIN/SULBACTAM 3 GM in SODIUM CHLORIDE 0.9% 100 ML IV SCH ×4 (03:10→21:22)
[2017-08-11] MEDS: ACETYLCYSTEINE 10%, 4ML NPPB SCH ×4 (04:00→18:51)
[2017-08-11 04:45] LABS: BLOOD UREA NITROGEN 20 mg/dL (7-18)
[2017-08-11 04:50] LABS: ABG COLLECTION SITE RIGHT RADIAL; COLLATERAL CIRCULATION TESTING NORMAL
[2017-08-11 04:52] LABS: HEMATOCRIT 24.1 % (34.6-47.8); HEMOGLOBIN 7.6 g/dL (11.7-16.4)
[2017-08-11 05:17] LABS: ANISOCYTOSIS 2+; HYPOCHROMIA 2+; MICROCYTOSIS 1+
[2017-08-11 05:18] LABS: OVALOCYTES 1+; POLYCHROMASIA 1+
[2017-08-11 05:25] LABS: TARGET CELLS 1+
[2017-08-11] MEDS: ALBUMIN HUMAN 25% 100 ML IV SCH ×2 (06:21→15:20)
[2017-08-11] MEDS: INSULIN ASPART 100 UNITS/ML, 3ML PEN HIGH DOSE SS SQ-INSULIN SCH ×4 (06:21→23:20)
[2017-08-11] MEDS: CHOLESTYRAMINE 4GM PACKET PO SCH ×2 (08:44→21:22)
[2017-08-11] MEDS: SENNA/DOCUSATE TABLET PO SCH (09:00)
[2017-08-11] MEDS: PANTOPRAZOLE 40 MG IV IVPush SCH (09:17)
[2017-08-11] MEDS: MULTIVITAMIN LIQUID NG SCH (09:17)
[2017-08-11] MEDS: FUROSEMIDE 20 MG/2 ML IV SCH ×2 (09:17→17:16)
[2017-08-11] MEDS: POTASSIUM CHLORIDE 10% 20 MEQ/15 ML UDC PO SCH ×2 (09:17→21:22)
[2017-08-11] MEDS: FERROUS SULFATE 220 MG/5 ML ORAL SOL PO SCH ×3 (09:17→21:22)
[2017-08-11] MEDS: SERTRALINE 100MG TABLET PO SCH (09:18)
[2017-08-11] MEDS: LOSARTAN 50MG TABLET PO SCH (09:18)
[2017-08-11] MEDS: THIAMINE 100MG TABLET NG SCH (09:18)
[2017-08-11] MEDS: FOLIC ACID 1 MG TABLET NG SCH (09:18)
[2017-08-11] MEDS: GABAPENTIN 250 MG/5 ML ORAL SOL PO SCH ×3 (09:18→21:22)
[2017-08-11] MEDS: INSULIN DETEMIR 100 UNITS/ML, PEN SQ-INSULIN SCH ×2 (09:40→21:24)
[2017-08-11] MEDS ORDERED: POTASSIUM CHLORIDE 20 MEQ TAB.ER.PRT PO ONE (13:30)
[2017-08-11] MEDS: ENOXAPARIN 40 MG/0.4 ML SQ SCH (20:10)
[2017-08-11] MEDS: morphine SULFATE 10 MG/ML, 1ML IVPush PRN (21:31)
[2017-08-12] MEDS: ACETYLCYSTEINE 10%, 4ML NPPB SCH ×4 (03:00→19:20)
[2017-08-12] MEDS: AMPICILLIN/SULBACTAM 3 GM in SODIUM CHLORIDE 0.9% 100 ML IV SCH ×4 (03:00→20:26)
[2017-08-12] MEDS: ALBUTEROL/IPRATROPIUM 2.5MG/0.5MG, 3 ML INLINE SCH ×6 (03:00→23:00)
[2017-08-12 04:00] VITALS: BP 131/65
[2017-08-12 04:39] LABS: ABG COLLECTION SITE RIGHT RADIAL; COLLATERAL CIRCULATION TESTING NORMAL
[2017-08-12 04:48] LABS: HEMATOCRIT 23.5 % (34.6-47.8); HEMOGLOBIN 7.3 g/dL (11.7-16.4); WHITE BLOOD COUNT 9.6 x10^3/uL (3.4-10)
[2017-08-12 04:53] LABS: ASPARTATE AMINO TRANSFERASE 26 U/L (15-37); BLOOD UREA NITROGEN 20 mg/dL (7-18)
[2017-08-12] MEDS: INSULIN ASPART 100 UNITS/ML, 3ML PEN HIGH DOSE SS SQ-INSULIN SCH ×2 (06:43→11:33)
[2017-08-12] MEDS: ALBUMIN HUMAN 25% 100 ML IV SCH ×2 (06:43→16:43)
[2017-08-12] MEDS: PANTOPRAZOLE 40 MG IV IVPush SCH (07:53)
[2017-08-12] MEDS: MULTIVITAMIN LIQUID NG SCH (07:54)
[2017-08-12] MEDS: GABAPENTIN 250 MG/5 ML ORAL SOL PO SCH ×3 (07:54→20:24)
[2017-08-12] MEDS: FUROSEMIDE 20 MG/2 ML IV SCH ×2 (07:54→18:00)
[2017-08-12] MEDS: FERROUS SULFATE 220 MG/5 ML ORAL SOL PO SCH ×3 (07:55→20:26)
[2017-08-12] MEDS: SERTRALINE 100MG TABLET PO SCH (07:55)
[2017-08-12] MEDS: LOSARTAN 50MG TABLET PO SCH (07:55)
[2017-08-12] MEDS: FOLIC ACID 1 MG TABLET NG SCH (07:55)
[2017-08-12] MEDS: THIAMINE 100MG TABLET NG SCH (07:55)
[2017-08-12] MEDS: INSULIN DETEMIR 100 UNITS/ML, PEN SQ-INSULIN SCH ×2 (08:04→20:23)
[2017-08-12] MEDS: FAMOTIDINE 20 MG TABLET PO SCH ×2 (09:00→20:26)
[2017-08-12] MEDS: VANCOMYCIN 50 MG/ML ORAL SUSP NG SCH ×3 (09:19→20:26)
[2017-08-12] MEDS: DIPHENOXYLATE/ATROPINE TABLET NG SCH ×2 (09:19→20:26)
[2017-08-12] MEDS: POTASSIUM CHLORIDE 10% 20 MEQ/15 ML UDC PO SCH ×2 (09:19→22:00)
[2017-08-12] MEDS: INSULIN ASPART 100 UNITS/ML, PEN SQ-INSULIN SCH ×2 (16:02→20:23)
[2017-08-12] MEDS: ENOXAPARIN 40 MG/0.4 ML SQ SCH (20:26)
[2017-08-12] MEDS ORDERED: POLYETHYLENE GLYCOL 17 GM PACKET PO PRN (20:30)
[2017-08-12] MEDS ORDERED: GLUCAGON 1 MG IM PRN (20:30)
[2017-08-12] MEDS ORDERED: ACETAMINOPHEN 325 MG TABLET PO PRN (20:30)
[2017-08-12] MEDS ORDERED: hydrALAzine 20 MG/ML, 1ML IV PRN (20:30)
[2017-08-12] MEDS ORDERED: ONDANSETRON 2MG/ML, 2ML IVPush PRN (20:30)
[2017-08-12] MEDS ORDERED: DEXTROSE 4 GM TAB.CHEW PO PRN (20:30)
[2017-08-13] MEDS: ALBUTEROL/IPRATROPIUM 2.5MG/0.5MG, 3 ML INLINE SCH ×4 (02:27→20:30)
[2017-08-13] MEDS: VANCOMYCIN 50 MG/ML ORAL SUSP NG SCH ×4 (03:24→22:27)
[2017-08-13] MEDS: AMPICILLIN/SULBACTAM 3 GM in SODIUM CHLORIDE 0.9% 100 ML IV SCH ×4 (03:24→22:26)
[2017-08-13 04:24] LABS: WHITE BLOOD COUNT 8.2 x10^3/uL (3.4-10)
[2017-08-13 04:33] LABS: ASPARTATE AMINO TRANSFERASE 31 U/L (15-37); BLOOD UREA NITROGEN 17 mg/dL (7-18)
[2017-08-13 04:39] LABS: ANISOCYTOSIS 2+; HYPOCHROMIA 2+; MICROCYTOSIS 1+; OVALOCYTES 1+; POLYCHROMASIA 1+; TARGET CELLS 1+
[2017-08-13 04:51] VITALS: BP 136/69
[2017-08-13] MEDS: ALBUMIN HUMAN 25% 100 ML IV SCH ×2 (05:40→16:41)
[2017-08-13] MEDS: INSULIN ASPART 100 UNITS/ML, PEN SQ-INSULIN SCH ×4 (07:00→22:21)
[2017-08-13] MEDS: ACETYLCYSTEINE 10%, 4ML NPPB SCH ×3 (07:35→20:30)
[2017-08-13] MEDS: FUROSEMIDE 20 MG/2 ML IV SCH ×2 (08:15→17:35)
[2017-08-13] MEDS: FAMOTIDINE 20 MG TABLET PO SCH ×2 (08:16→22:26)
[2017-08-13] MEDS: FERROUS SULFATE 220 MG/5 ML ORAL SOL PO SCH ×3 (08:16→22:27)
[2017-08-13] MEDS: LOSARTAN 50MG TABLET PO SCH (08:17)
[2017-08-13] MEDS: FOLIC ACID 1 MG TABLET NG SCH (08:17)
[2017-08-13] MEDS: MULTIVITAMIN LIQUID NG SCH (08:18)
[2017-08-13] MEDS: THIAMINE 100MG TABLET NG SCH (08:18)
[2017-08-13] MEDS: DIPHENOXYLATE/ATROPINE TABLET NG SCH ×2 (08:19→22:26)
[2017-08-13] MEDS: SERTRALINE 100MG TABLET PO SCH (08:20)
[2017-08-13] MEDS: POTASSIUM CHLORIDE 10% 20 MEQ/15 ML UDC PO SCH ×2 (08:21→22:29)
[2017-08-13] MEDS: GABAPENTIN 250 MG/5 ML ORAL SOL PO SCH ×3 (08:21→22:39)
[2017-08-13] MEDS ORDERED: ACETYLCYSTEINE 10%, 4ML NPPB SCH (09:00)
[2017-08-13] MEDS: INSULIN DETEMIR 100 UNITS/ML, PEN SQ-INSULIN SCH ×2 (09:30→22:40)
[2017-08-13 11:00] VITALS: BP 151/73
[2017-08-13] MEDS: morphine SULFATE 10 MG/ML, 1ML IVPush PRN (11:19)
[2017-08-13 20:31] VITALS: BP 150/64
[2017-08-13] MEDS: ENOXAPARIN 40 MG/0.4 ML SQ SCH (22:26)
[2017-08-14 02:39] VITALS: BP 123/50
[2017-08-14] MEDS: ALBUTEROL/IPRATROPIUM 2.5MG/0.5MG, 3 ML INLINE SCH ×4 (02:50→19:43)
[2017-08-14] MEDS: ACETYLCYSTEINE 10%, 4ML NPPB SCH ×4 (02:50→21:00)
[2017-08-14] MEDS: AMPICILLIN/SULBACTAM 3 GM in SODIUM CHLORIDE 0.9% 100 ML IV SCH ×4 (03:31→22:35)
[2017-08-14] MEDS: VANCOMYCIN 50 MG/ML ORAL SUSP NG SCH ×4 (03:33→22:36)
[2017-08-14] MEDS: ALBUMIN HUMAN 25% 100 ML IV SCH ×2 (06:02→15:30)
[2017-08-14 06:27] LABS: HEMATOCRIT 23.4 % (34.6-47.8); HEMOGLOBIN 7.5 g/dL (11.7-16.4); WHITE BLOOD COUNT 7.4 x10^3/uL (3.4-10)
[2017-08-14 06:38] LABS: BLOOD UREA NITROGEN 12 mg/dL (7-18)
[2017-08-14] MEDS: INSULIN ASPART 100 UNITS/ML, PEN SQ-INSULIN SCH ×4 (07:00→22:22)
[2017-08-14 07:59] VITALS: BP 146/70
[2017-08-14 09:00] VITALS: BP 150/71
[2017-08-14] MEDS: GABAPENTIN 250 MG/5 ML ORAL SOL PO SCH ×3 (09:28→22:35)
[2017-08-14] MEDS: FUROSEMIDE 20 MG/2 ML IV SCH ×2 (09:29→17:33)
[2017-08-14] MEDS: MULTIVITAMIN LIQUID NG SCH (09:32)
[2017-08-14] MEDS: FERROUS SULFATE 220 MG/5 ML ORAL SOL PO SCH ×3 (09:32→22:36)
[2017-08-14] MEDS: LOSARTAN 50MG TABLET PO SCH (09:34)
[2017-08-14] MEDS: FAMOTIDINE 20 MG TABLET PO SCH ×2 (09:34→22:36)
[2017-08-14] MEDS: THIAMINE 100MG TABLET NG SCH (09:35)
[2017-08-14] MEDS: FOLIC ACID 1 MG TABLET NG SCH (09:35)
[2017-08-14] MEDS: SERTRALINE 100MG TABLET PO SCH (09:35)
[2017-08-14] MEDS: INSULIN DETEMIR 100 UNITS/ML, PEN SQ-INSULIN SCH ×2 (09:38→22:37)
[2017-08-14] MEDS: DIPHENOXYLATE/ATROPINE TABLET NG SCH ×2 (09:54→22:36)
[2017-08-14] MEDS: POTASSIUM CHLORIDE 10% 20 MEQ/15 ML UDC PO SCH ×2 (09:54→22:38)
[2017-08-14 14:00] VITALS: BP 165/73
[2017-08-14 21:26] VITALS: BP 145/73
[2017-08-14] MEDS: ENOXAPARIN 40 MG/0.4 ML SQ SCH (22:36)
[2017-08-15] MEDS: HYDROcodone/APAP 5/325 TABLET PO PRN ×3 (02:14→15:50)
[2017-08-15] MEDS: ALBUTEROL/IPRATROPIUM 2.5MG/0.5MG, 3 ML INLINE SCH ×4 (02:47→21:00)
[2017-08-15] MEDS: ACETYLCYSTEINE 10%, 4ML NPPB SCH (03:00)
[2017-08-15 03:25] VITALS: BP 120/64
[2017-08-15] MEDS: AMPICILLIN/SULBACTAM 3 GM in SODIUM CHLORIDE 0.9% 100 ML IV SCH ×4 (03:37→22:19)
[2017-08-15] MEDS: VANCOMYCIN 50 MG/ML ORAL SUSP NG SCH ×4 (03:40→22:18)
[2017-08-15 05:06] LABS: HEMATOCRIT 23.6 % (34.6-47.8); HEMOGLOBIN 7.6 g/dL (11.7-16.4); WHITE BLOOD COUNT 6.8 x10^3/uL (3.4-10)
[2017-08-15] MEDS: INSULIN ASPART 100 UNITS/ML, PEN SQ-INSULIN SCH ×4 (07:00→21:00)
[2017-08-15] MEDS: DIPHENOXYLATE/ATROPINE TABLET NG SCH ×2 (09:00→21:00)
[2017-08-15 09:39] LABS: 027-NAP1-BI Presumpt Negative (Negative)
[2017-08-15] MEDS: POTASSIUM CHLORIDE 10% 20 MEQ/15 ML UDC PO SCH ×2 (10:31→21:00)
[2017-08-15] MEDS: GABAPENTIN 250 MG/5 ML ORAL SOL PO SCH ×3 (10:32→23:03)
[2017-08-15] MEDS: FERROUS SULFATE 220 MG/5 ML ORAL SOL PO SCH ×3 (10:32→22:18)
[2017-08-15] MEDS: MULTIVITAMIN LIQUID NG SCH (10:34)
[2017-08-15] MEDS: morphine SULFATE 10 MG/ML, 1ML IVPush PRN ×2 (11:10→13:47)
[2017-08-15] MEDS: FUROSEMIDE 20 MG/2 ML IV SCH ×2 (11:10→18:35)
[2017-08-15] MEDS: INSULIN DETEMIR 100 UNITS/ML, PEN SQ-INSULIN SCH ×2 (11:11→22:20)
[2017-08-15] MEDS: SERTRALINE 100MG TABLET PO SCH (12:06)
[2017-08-15] MEDS: LOSARTAN 50MG TABLET PO SCH (12:07)
[2017-08-15] MEDS: FAMOTIDINE 20 MG TABLET PO SCH ×2 (12:07→22:18)
[2017-08-15] MEDS: FOLIC ACID 1 MG TABLET NG SCH (12:07)
[2017-08-15] MEDS: THIAMINE 100MG TABLET NG SCH (12:07)
[2017-08-15 13:57] VITALS: BP 126/64
[2017-08-15 19:53] VITALS: BP 120/61
[2017-08-15] MEDS: ENOXAPARIN 40 MG/0.4 ML SQ SCH (20:00)
[2017-08-16] VITALS (7 sets, daily range): BP systolic 105–151; BP diastolic 54–71
[2017-08-16] MEDS: ALBUTEROL/IPRATROPIUM 2.5MG/0.5MG, 3 ML INLINE SCH (04:00)
[2017-08-16] MEDS: AMPICILLIN/SULBACTAM 3 GM in SODIUM CHLORIDE 0.9% 100 ML IV SCH ×4 (04:52→23:09)
[2017-08-16] MEDS: VANCOMYCIN 50 MG/ML ORAL SUSP NG SCH ×2 (04:53→16:00)
[2017-08-16 06:28] LABS: WHITE BLOOD COUNT 7.4 x10^3/uL (3.4-10)
[2017-08-16] MEDS: INSULIN ASPART 100 UNITS/ML, PEN SQ-INSULIN SCH ×4 (07:00→20:50)
[2017-08-16] MEDS: FUROSEMIDE 20 MG/2 ML IV SCH ×2 (08:29→17:00)
[2017-08-16 08:34] LABS: BLOOD UREA NITROGEN 17 mg/dL (7-18)
[2017-08-16] MEDS: DIPHENOXYLATE/ATROPINE TABLET NG SCH ×2 (09:00→21:04)
[2017-08-16] MEDS: POTASSIUM CHLORIDE 10% 20 MEQ/15 ML UDC PO SCH ×2 (09:00→20:50)
[2017-08-16] MEDS: FOLIC ACID 1 MG TABLET NG SCH (09:02)
[2017-08-16] MEDS: MULTIVITAMIN LIQUID NG SCH (09:03)
[2017-08-16] MEDS: FERROUS SULFATE 220 MG/5 ML ORAL SOL PO SCH ×3 (09:04→20:43)
[2017-08-16] MEDS: THIAMINE 100MG TABLET NG SCH (09:04)
[2017-08-16] MEDS: LOSARTAN 50MG TABLET PO SCH (09:04)
[2017-08-16] MEDS: GABAPENTIN 250 MG/5 ML ORAL SOL PO SCH ×3 (09:05→20:43)
[2017-08-16] MEDS: FAMOTIDINE 20 MG TABLET PO SCH ×2 (09:06→20:43)
[2017-08-16] MEDS: SERTRALINE 100MG TABLET PO SCH (09:08)
[2017-08-16] MEDS: INSULIN DETEMIR 100 UNITS/ML, PEN SQ-INSULIN SCH ×2 (09:09→20:49)
[2017-08-16] MEDS: ALBUTEROL/IPRATROPIUM 2.5MG/0.5MG, 3 ML NPPB SCH ×3 (09:16→20:11)
[2017-08-16] MEDS ORDERED: VANCOMYCIN 50 MG/ML ORAL SUSP NG SCH (16:00)
[2017-08-16] MEDS: ENOXAPARIN 40 MG/0.4 ML SQ SCH (20:40)
[2017-08-16] MEDS: HYDROcodone/APAP 5/325 TABLET PO PRN (21:04)
[2017-08-17 02:12] VITALS: BP 92/47
[2017-08-17] MEDS: ALBUTEROL/IPRATROPIUM 2.5MG/0.5MG, 3 ML NPPB SCH ×4 (02:45→21:35)
[2017-08-17] MEDS: VANCOMYCIN 50 MG/ML ORAL SUSP NG SCH (04:40)
[2017-08-17] MEDS: AMPICILLIN/SULBACTAM 3 GM in SODIUM CHLORIDE 0.9% 100 ML IV SCH ×3 (04:43→16:49)
[2017-08-17 06:05] LABS: HEMATOCRIT 23.2 % (34.6-47.8); HEMOGLOBIN 7.5 g/dL (11.7-16.4); WHITE BLOOD COUNT 6.7 x10^3/uL (3.4-10)
[2017-08-17 06:30] LABS: ANISOCYTOSIS 2+; MICROCYTOSIS 1+; POLYCHROMASIA 1+
[2017-08-17] MEDS: INSULIN ASPART 100 UNITS/ML, PEN SQ-INSULIN SCH ×4 (07:57→21:14)
[2017-08-17 08:06] VITALS: BP 109/68
[2017-08-17] MEDS: FERROUS SULFATE 220 MG/5 ML ORAL SOL PO SCH (09:00)
[2017-08-17] MEDS ORDERED: MULTIVITAMIN LIQUID PO SCH ×2 (09:00)
[2017-08-17] MEDS: FUROSEMIDE 20 MG/2 ML IV SCH ×2 (09:51→16:49)
[2017-08-17] MEDS: SERTRALINE 100MG TABLET PO SCH (09:51)
[2017-08-17] MEDS: FOLIC ACID 1 MG TABLET PO SCH (09:51)
[2017-08-17] MEDS: FAMOTIDINE 20 MG TABLET PO SCH ×2 (09:51→21:15)
[2017-08-17] MEDS: THIAMINE 100MG TABLET PO SCH (09:52)
[2017-08-17] MEDS: POTASSIUM CHLORIDE 10% 20 MEQ/15 ML UDC PO SCH ×2 (09:52→21:16)
[2017-08-17] MEDS: LOSARTAN 50MG TABLET PO SCH (09:52)
[2017-08-17] MEDS: DIPHENOXYLATE/ATROPINE TABLET PO SCH ×2 (10:12→21:20)
[2017-08-17] MEDS: INSULIN DETEMIR 100 UNITS/ML, PEN SQ-INSULIN SCH ×2 (10:13→21:14)
[2017-08-17] MEDS: HYDROcodone/APAP 5/325 TABLET PO PRN (10:21)
[2017-08-17] MEDS: morphine SULFATE 10 MG/ML, 1ML IVPush PRN (11:13)
[2017-08-17] MEDS ORDERED: morphine SULFATE 10 MG/ML, 1ML IVPush STA (11:50)
[2017-08-17] MEDS: FERROUS SULFATE 325 MG TABLET PO SCH ×3 (12:00→16:49)
[2017-08-17] MEDS: MULTIVITAMIN 1 TABLET PO SCH (13:02)
[2017-08-17] MEDS: GABAPENTIN 300 MG CAPSULE PO SCH ×3 (13:02→21:15)
[2017-08-17 13:10] VITALS: BP 101/61
[2017-08-17] MEDS: VANCOMYCIN 50 MG/ML ORAL SUSP PO SCH (16:51)
[2017-08-17 19:22] VITALS: BP 125/62
[2017-08-17] MEDS: ENOXAPARIN 40 MG/0.4 ML SQ SCH (21:14)
[2017-08-18 01:12] VITALS: BP 106/54
[2017-08-18] MEDS: HYDROcodone/APAP 5/325 TABLET PO PRN ×3 (01:16→17:14)
[2017-08-18] MEDS: ALBUTEROL/IPRATROPIUM 2.5MG/0.5MG, 3 ML NPPB SCH ×4 (02:59→19:54)
[2017-08-18] MEDS: VANCOMYCIN 50 MG/ML ORAL SUSP PO SCH ×2 (04:16→17:14)
[2017-08-18 06:10] LABS: HEMATOCRIT 23.8 % (34.6-47.8); HEMOGLOBIN 7.7 g/dL (11.7-16.4); WHITE BLOOD COUNT 6.1 x10^3/uL (3.4-10)
[2017-08-18] MEDS: INSULIN ASPART 100 UNITS/ML, PEN SQ-INSULIN SCH ×4 (06:43→21:13)
[2017-08-18 08:17] VITALS: BP 97/56
[2017-08-18] MEDS: SERTRALINE 100MG TABLET PO SCH (08:31)
[2017-08-18] MEDS: FAMOTIDINE 20 MG TABLET PO SCH (08:31)
[2017-08-18] MEDS: FERROUS SULFATE 325 MG TABLET PO SCH ×3 (08:32→17:14)
[2017-08-18] MEDS: DIPHENOXYLATE/ATROPINE TABLET PO SCH ×2 (08:32→21:12)
[2017-08-18] MEDS: MULTIVITAMIN 1 TABLET PO SCH (08:32)
[2017-08-18] MEDS: THIAMINE 100MG TABLET PO SCH (08:32)
[2017-08-18] MEDS: GABAPENTIN 300 MG CAPSULE PO SCH ×3 (08:32→21:14)
[2017-08-18] MEDS: FOLIC ACID 1 MG TABLET PO SCH (08:32)
[2017-08-18] MEDS: FUROSEMIDE 20 MG/2 ML IV SCH (08:33)
[2017-08-18] MEDS: POTASSIUM CHLORIDE 10% 20 MEQ/15 ML UDC PO SCH (08:33)
[2017-08-18] MEDS: INSULIN DETEMIR 100 UNITS/ML, PEN SQ-INSULIN SCH ×2 (08:34→21:13)
[2017-08-18] MEDS: SUMATRIPTAN 25 MG TABLET PO PRN (08:37)
[2017-08-18] MEDS: LOSARTAN 50MG TABLET PO SCH (09:00)
[2017-08-18 14:05] VITALS: BP 120/64
[2017-08-18 15:36] LABS: BLOOD UREA NITROGEN 14 mg/dL (7-18)
[2017-08-18 19:02] VITALS: BP 112/60
[2017-08-18] MEDS: ENOXAPARIN 40 MG/0.4 ML SQ SCH (21:14)
[2017-08-19 02:00] VITALS: BP 112/58
[2017-08-19] MEDS: ALBUTEROL/IPRATROPIUM 2.5MG/0.5MG, 3 ML NPPB SCH ×4 (03:00→20:15)
[2017-08-19] MEDS: VANCOMYCIN 50 MG/ML ORAL SUSP PO SCH (05:11)
[2017-08-19] MEDS: HYDROcodone/APAP 5/325 TABLET PO PRN ×5 (05:29→20:04)
[2017-08-19 05:45] LABS: HEMATOCRIT 25.1 % (34.6-47.8); HEMOGLOBIN 8.3 g/dL (11.7-16.4); WHITE BLOOD COUNT 5.9 x10^3/uL (3.4-10)
[2017-08-19] MEDS: INSULIN ASPART 100 UNITS/ML, PEN SQ-INSULIN SCH ×4 (06:40→21:01)
[2017-08-19 06:41] LABS: DIFF TOTAL CELLS COUNTED 100 CELL DIFF
[2017-08-19 06:43] LABS: ANISOCYTOSIS 2+; HYPOCHROMIA 1+; MICROCYTOSIS 1+; OVALOCYTES 1+; POIKILOCYTOSIS 1+; VERIFY COUNTS? YES
[2017-08-19 08:19] VITALS: BP 112/55
[2017-08-19] MEDS: FOLIC ACID 1 MG TABLET PO SCH (09:34)
[2017-08-19] MEDS: GABAPENTIN 300 MG CAPSULE PO SCH ×3 (09:34→21:00)
[2017-08-19] MEDS: MULTIVITAMIN 1 TABLET PO SCH (09:34)
[2017-08-19] MEDS: THIAMINE 100MG TABLET PO SCH (09:34)
[2017-08-19] MEDS: SERTRALINE 100MG TABLET PO SCH (09:34)
[2017-08-19] MEDS: FERROUS SULFATE 325 MG TABLET PO SCH ×3 (09:34→16:58)
[2017-08-19] MEDS: DIPHENOXYLATE/ATROPINE TABLET PO SCH ×2 (09:47→20:59)
[2017-08-19] MEDS: INSULIN DETEMIR 100 UNITS/ML, PEN SQ-INSULIN SCH ×2 (09:48→21:00)
[2017-08-19 14:05] VITALS: BP 111/55
[2017-08-19 19:22] VITALS: BP 117/58
[2017-08-19] MEDS: ENOXAPARIN 40 MG/0.4 ML SQ SCH (20:04)
[2017-08-19] MEDS: morphine SULFATE 10 MG/ML, 1ML IVPush PRN (21:58)
[2017-08-20] MEDS: HYDROcodone/APAP 5/325 TABLET PO PRN ×3 (00:38→11:09)
[2017-08-20 02:07] VITALS: BP 107/54
[2017-08-20] MEDS: ALBUTEROL/IPRATROPIUM 2.5MG/0.5MG, 3 ML NPPB SCH ×4 (03:00→19:45)
[2017-08-20 05:44] LABS: HEMATOCRIT 26.1 % (34.6-47.8); HEMOGLOBIN 8.4 g/dL (11.7-16.4)
[2017-08-20 06:03] LABS: ASPARTATE AMINO TRANSFERASE 38 U/L (15-37); BLOOD UREA NITROGEN 9 mg/dL (7-18)
[2017-08-20 06:17] LABS: DIFF TOTAL CELLS COUNTED 100 CELL DIFF
[2017-08-20 06:19] LABS: ANISOCYTOSIS 2+; VERIFY COUNTS? YES
[2017-08-20 06:20] LABS: HYPOCHROMIA 2+; MICROCYTOSIS 1+; OVALOCYTES 1+; POIKILOCYTOSIS 1+
[2017-08-20] MEDS: INSULIN ASPART 100 UNITS/ML, PEN SQ-INSULIN SCH ×4 (07:00→21:00)
[2017-08-20 08:49] VITALS: BP 121/63
[2017-08-20] MEDS: INSULIN DETEMIR 100 UNITS/ML, PEN SQ-INSULIN SCH ×2 (11:09→21:03)
[2017-08-20] MEDS: MULTIVITAMIN 1 TABLET PO SCH (11:09)
[2017-08-20] MEDS: SERTRALINE 100MG TABLET PO SCH (11:09)
[2017-08-20] MEDS: GABAPENTIN 300 MG CAPSULE PO SCH ×3 (11:09→21:02)
[2017-08-20] MEDS: FOLIC ACID 1 MG TABLET PO SCH (11:10)
[2017-08-20] MEDS: FERROUS SULFATE 325 MG TABLET PO SCH ×3 (11:10→17:36)
[2017-08-20] MEDS: THIAMINE 100MG TABLET PO SCH (11:10)
[2017-08-20] MEDS: DIPHENOXYLATE/ATROPINE TABLET PO SCH ×2 (11:17→21:00)
[2017-08-20] MEDS: morphine SULFATE 10 MG/ML, 1ML IVPush PRN (11:17)
[2017-08-20 15:35] VITALS: BP 119/61
[2017-08-20 21:02] VITALS: BP 158/72
[2017-08-20] MEDS: ENOXAPARIN 40 MG/0.4 ML SQ SCH (21:02)
[2017-08-21 01:55] VITALS: BP 109/68
[2017-08-21] MEDS: ALBUTEROL/IPRATROPIUM 2.5MG/0.5MG, 3 ML NPPB SCH ×2 (03:00→07:51)
[2017-08-21 05:19] LABS: HEMATOCRIT 26.3 % (34.6-47.8); HEMOGLOBIN 8.6 g/dL (11.7-16.4); WHITE BLOOD COUNT 6.9 x10^3/uL (3.4-10)
[2017-08-21 05:47] LABS: DIFF TOTAL CELLS COUNTED 100 CELL DIFF
[2017-08-21 05:48] LABS: VERIFY COUNTS? YES
[2017-08-21 05:49] LABS: ANISOCYTOSIS 2+; HYPOCHROMIA 2+; MICROCYTOSIS 1+; OVALOCYTES 1+; POIKILOCYTOSIS 1+; STOMATOCYTES 1+
[2017-08-21] MEDS: INSULIN ASPART 100 UNITS/ML, PEN SQ-INSULIN SCH ×4 (07:00→21:47)
[2017-08-21] MEDS: FERROUS SULFATE 325 MG TABLET PO SCH ×3 (08:06→16:00)
[2017-08-21] MEDS: GABAPENTIN 300 MG CAPSULE PO SCH ×3 (08:06→21:46)
[2017-08-21] MEDS: MULTIVITAMIN 1 TABLET PO SCH (08:06)
[2017-08-21] MEDS: THIAMINE 100MG TABLET PO SCH (08:06)
[2017-08-21] MEDS: SERTRALINE 100MG TABLET PO SCH (08:06)
[2017-08-21] MEDS: FOLIC ACID 1 MG TABLET PO SCH (08:06)
[2017-08-21] MEDS: DIPHENOXYLATE/ATROPINE TABLET PO SCH ×2 (08:07→21:46)
[2017-08-21] MEDS: INSULIN DETEMIR 100 UNITS/ML, PEN SQ-INSULIN SCH ×2 (08:07→21:47)
[2017-08-21 08:24] VITALS: BP 136/86
[2017-08-21] MEDS: HYDROcodone/APAP 5/325 TABLET PO PRN ×5 (09:16→23:16)
[2017-08-21 15:05] VITALS: BP 117/55
[2017-08-21 20:33] VITALS: BP 114/55
[2017-08-21] MEDS: ENOXAPARIN 40 MG/0.4 ML SQ SCH (21:46)
[2017-08-22 02:02] VITALS: BP 112/60
[2017-08-22] MEDS ORDERED: ALBUTEROL/IPRATROPIUM 2.5MG/0.5MG, 3 ML NPPB PRN (03:00)
[2017-08-22] MEDS: HYDROcodone/APAP 5/325 TABLET PO PRN ×5 (05:04→21:31)
[2017-08-22 05:41] LABS: ASPARTATE AMINO TRANSFERASE 36 U/L (15-37); BLOOD UREA NITROGEN 12 mg/dL (7-18)
[2017-08-22 05:48] LABS: HEMATOCRIT 26.5 % (34.6-47.8); HEMOGLOBIN 8.4 g/dL (11.7-16.4); WHITE BLOOD COUNT 6.4 x10^3/uL (3.4-10)
[2017-08-22 06:14] LABS: DIFF TOTAL CELLS COUNTED 100 CELL DIFF
[2017-08-22 06:16] LABS: ANISOCYTOSIS 1+; HYPOCHROMIA 2+; MICROCYTOSIS 1+; OVALOCYTES 1+; POIKILOCYTOSIS 1+; STOMATOCYTES 1+; VERIFY COUNTS? YES
[2017-08-22] MEDS: INSULIN ASPART 100 UNITS/ML, PEN SQ-INSULIN SCH ×4 (07:00→21:30)
[2017-08-22 07:13] VITALS: BP 110/61
[2017-08-22] MEDS: INSULIN DETEMIR 100 UNITS/ML, PEN SQ-INSULIN SCH ×2 (08:13→21:29)
[2017-08-22] MEDS: MULTIVITAMIN 1 TABLET PO SCH (08:16)
[2017-08-22] MEDS: SERTRALINE 100MG TABLET PO SCH (08:17)
[2017-08-22] MEDS: FERROUS SULFATE 325 MG TABLET PO SCH ×3 (08:17→16:14)
[2017-08-22] MEDS: GABAPENTIN 300 MG CAPSULE PO SCH ×3 (08:18→21:27)
[2017-08-22] MEDS: THIAMINE 100MG TABLET PO SCH (08:18)
[2017-08-22] MEDS: FOLIC ACID 1 MG TABLET PO SCH (08:21)
[2017-08-22] MEDS: DIPHENOXYLATE/ATROPINE TABLET PO SCH ×2 (10:12→21:28)
[2017-08-22] MEDS: morphine SULFATE 10 MG/ML, 1ML IVPush PRN ×2 (10:12→11:23)
[2017-08-22 13:41] VITALS: BP 126/67
[2017-08-22] MEDS: LEVOFLOXACIN/PMX 500MG/100ML 100 ML IV SCH (15:24)
[2017-08-22 21:24] VITALS: BP 142/66
[2017-08-22] MEDS: ENOXAPARIN 40 MG/0.4 ML SQ SCH (21:26)
[2017-08-23 02:31] VITALS: BP 124/64
[2017-08-23] MEDS: INSULIN ASPART 100 UNITS/ML, PEN SQ-INSULIN SCH ×4 (06:32→21:46)
[2017-08-23 06:50] LABS: HEMATOCRIT 28.3 % (34.6-47.8); WHITE BLOOD COUNT 6.4 x10^3/uL (3.4-10)
[2017-08-23 06:59] LABS: BLOOD UREA NITROGEN 10 mg/dL (7-18)
[2017-08-23 07:17] LABS: ANISOCYTOSIS 2+; HYPOCHROMIA 2+; MICROCYTOSIS 1+; OVALOCYTES 1+; POIKILOCYTOSIS 1+; POLYCHROMASIA 1+
[2017-08-23 07:18] LABS: TARGET CELLS 1+
[2017-08-23 07:19] LABS: STOMATOCYTES 1+
[2017-08-23 07:28] VITALS: BP 127/63
[2017-08-23] MEDS: GABAPENTIN 300 MG CAPSULE PO SCH ×3 (08:12→21:46)
[2017-08-23] MEDS: SERTRALINE 100MG TABLET PO SCH (08:12)
[2017-08-23] MEDS: DIPHENOXYLATE/ATROPINE TABLET PO SCH ×2 (08:12→22:31)
[2017-08-23] MEDS: THIAMINE 100MG TABLET PO SCH (08:12)
[2017-08-23] MEDS: FERROUS SULFATE 325 MG TABLET PO SCH ×3 (08:12→16:11)
[2017-08-23] MEDS: FOLIC ACID 1 MG TABLET PO SCH (08:12)
[2017-08-23] MEDS: HYDROcodone/APAP 5/325 TABLET PO PRN ×4 (08:12→21:46)
[2017-08-23] MEDS: MULTIVITAMIN 1 TABLET PO SCH (08:12)
[2017-08-23] MEDS: INSULIN DETEMIR 100 UNITS/ML, PEN SQ-INSULIN SCH ×2 (08:13→21:45)
[2017-08-23 13:02] VITALS: BP 117/62
[2017-08-23] MEDS: LEVOFLOXACIN/PMX 500MG/100ML 100 ML IV SCH (14:23)
[2017-08-23 19:39] VITALS: BP 127/66
[2017-08-23] MEDS: ENOXAPARIN 40 MG/0.4 ML SQ SCH (21:46)
[2017-08-24] MEDS: HYDROcodone/APAP 5/325 TABLET PO PRN ×5 (01:48→22:02)
[2017-08-24 02:13] VITALS: BP 120/56
[2017-08-24 05:47] LABS: HEMATOCRIT 27.1 % (34.6-47.8); HEMOGLOBIN 8.8 g/dL (11.7-16.4); WHITE BLOOD COUNT 5.8 x10^3/uL (3.4-10)
[2017-08-24 05:49] LABS: BLOOD UREA NITROGEN 10 mg/dL (7-18)
[2017-08-24 06:53] VITALS: BP 112/56
[2017-08-24] MEDS: INSULIN ASPART 100 UNITS/ML, PEN SQ-INSULIN SCH ×4 (07:00→21:00)
[2017-08-24] MEDS ORDERED: CATHFLO-ALTEPLASE 2 MG/2 ML CATHFLUSH ONE ×2 (07:30→11:00)
[2017-08-24] MEDS: FERROUS SULFATE 325 MG TABLET PO SCH ×3 (07:54→17:09)
[2017-08-24] MEDS: GABAPENTIN 300 MG CAPSULE PO SCH ×3 (08:25→21:54)
[2017-08-24] MEDS: DIPHENOXYLATE/ATROPINE TABLET PO SCH ×2 (08:25→21:55)
[2017-08-24] MEDS: FOLIC ACID 1 MG TABLET PO SCH (08:25)
[2017-08-24] MEDS: MULTIVITAMIN 1 TABLET PO SCH (08:26)
[2017-08-24] MEDS: SERTRALINE 100MG TABLET PO SCH (08:26)
[2017-08-24] MEDS: INSULIN DETEMIR 100 UNITS/ML, PEN SQ-INSULIN SCH ×2 (08:26→22:03)
[2017-08-24] MEDS: THIAMINE 100MG TABLET PO SCH (08:26)
[2017-08-24] MEDS: morphine SULFATE 10 MG/ML, 1ML IVPush PRN (10:29)
[2017-08-24 13:46] VITALS: BP 115/62
[2017-08-24] MEDS: LEVOFLOXACIN/PMX 500MG/100ML 100 ML IV SCH (14:18)
[2017-08-24 19:40] VITALS: BP 121/65
[2017-08-24] MEDS: ENOXAPARIN 40 MG/0.4 ML SQ SCH (20:00)
[2017-08-25 03:12] VITALS: BP 124/62
[2017-08-25] MEDS: INSULIN ASPART 100 UNITS/ML, PEN SQ-INSULIN SCH ×4 (07:00→21:43)
[2017-08-25 07:21] VITALS: BP 138/64
[2017-08-25] MEDS: GABAPENTIN 300 MG CAPSULE PO SCH ×3 (08:33→21:44)
[2017-08-25] MEDS: THIAMINE 100MG TABLET PO SCH (08:33)
[2017-08-25] MEDS: MULTIVITAMIN 1 TABLET PO SCH (08:33)
[2017-08-25] MEDS: HYDROcodone/APAP 5/325 TABLET PO PRN ×4 (08:33→21:44)
[2017-08-25] MEDS: SERTRALINE 100MG TABLET PO SCH (08:33)
[2017-08-25] MEDS: DIPHENOXYLATE/ATROPINE TABLET PO SCH ×2 (08:33→21:00)
[2017-08-25] MEDS: FERROUS SULFATE 325 MG TABLET PO SCH ×3 (08:34→17:03)
[2017-08-25] MEDS: INSULIN DETEMIR 100 UNITS/ML, PEN SQ-INSULIN SCH ×2 (08:34→21:43)
[2017-08-25] MEDS: FOLIC ACID 1 MG TABLET PO SCH (08:34)
[2017-08-25] MEDS: LEVOFLOXACIN 750 MG TABLET PO SCH (11:44)
[2017-08-25 12:49] VITALS: BP 134/65
[2017-08-25 20:00] VITALS: BP 138/69
[2017-08-25] MEDS: ENOXAPARIN 40 MG/0.4 ML SQ SCH (21:44)
[2017-08-26] MEDS: HYDROcodone/APAP 5/325 TABLET PO PRN ×5 (02:01→20:55)
[2017-08-26 02:04] VITALS: BP 128/68
[2017-08-26 03:26] VITALS: BP 116/61
[2017-08-26] MEDS: INSULIN ASPART 100 UNITS/ML, PEN SQ-INSULIN SCH ×4 (06:21→22:14)
[2017-08-26 07:13] VITALS: BP 127/61
[2017-08-26] MEDS: MULTIVITAMIN 1 TABLET PO SCH (08:48)
[2017-08-26] MEDS: FOLIC ACID 1 MG TABLET PO SCH (08:48)
[2017-08-26] MEDS: THIAMINE 100MG TABLET PO SCH (08:48)
[2017-08-26] MEDS: LEVOFLOXACIN 750 MG TABLET PO SCH (08:48)
[2017-08-26] MEDS: GABAPENTIN 300 MG CAPSULE PO SCH ×3 (08:48→22:16)
[2017-08-26] MEDS: DIPHENOXYLATE/ATROPINE TABLET PO SCH ×2 (08:48→22:16)
[2017-08-26] MEDS: FERROUS SULFATE 325 MG TABLET PO SCH ×3 (08:48→16:14)
[2017-08-26] MEDS: INSULIN DETEMIR 100 UNITS/ML, PEN SQ-INSULIN SCH ×2 (08:48→22:15)
[2017-08-26] MEDS: SERTRALINE 100MG TABLET PO SCH (08:49)
[2017-08-26 12:55] VITALS: BP 115/60
[2017-08-26 21:08] VITALS: BP 138/68
[2017-08-26] MEDS: ENOXAPARIN 40 MG/0.4 ML SQ SCH (22:15)
[2017-08-27] MEDS: morphine SULFATE 10 MG/ML, 1ML IVPush PRN ×3 (00:02→11:34)
[2017-08-27] MEDS: HYDROcodone/APAP 5/325 TABLET PO PRN ×6 (01:20→22:42)
[2017-08-27 03:48] VITALS: BP 133/62
[2017-08-27 05:34] LABS: HEMATOCRIT 27.3 % (34.6-47.8); HEMOGLOBIN 9.1 g/dL (11.7-16.4); WHITE BLOOD COUNT 7.8 x10^3/uL (3.4-10)
[2017-08-27 05:42] LABS: ASPARTATE AMINO TRANSFERASE 61 U/L (15-37); BLOOD UREA NITROGEN 9 mg/dL (7-18)
[2017-08-27 05:59] LABS: ANISOCYTOSIS 2+; HYPOCHROMIA 2+; MICROCYTOSIS 1+; POIKILOCYTOSIS 1+; POLYCHROMASIA 1+; SCHISTOCYTES 1+; SPHEROCYTES 1+; TARGET CELLS 1+
[2017-08-27 06:06] LABS: OVALOCYTES 1+
[2017-08-27] MEDS: INSULIN ASPART 100 UNITS/ML, PEN SQ-INSULIN SCH ×4 (07:00→21:34)
[2017-08-27 07:05] VITALS: BP 135/67
[2017-08-27] MEDS: INSULIN DETEMIR 100 UNITS/ML, PEN SQ-INSULIN SCH ×2 (09:32→21:34)
[2017-08-27] MEDS: THIAMINE 100MG TABLET PO SCH (09:33)
[2017-08-27] MEDS: LEVOFLOXACIN 750 MG TABLET PO SCH (09:33)
[2017-08-27] MEDS: FOLIC ACID 1 MG TABLET PO SCH (09:33)
[2017-08-27] MEDS: DIPHENOXYLATE/ATROPINE TABLET PO SCH ×2 (09:33→20:47)
[2017-08-27] MEDS: GABAPENTIN 300 MG CAPSULE PO SCH ×3 (09:33→20:47)
[2017-08-27] MEDS: MULTIVITAMIN 1 TABLET PO SCH (09:33)
[2017-08-27] MEDS: FERROUS SULFATE 325 MG TABLET PO SCH ×3 (09:33→16:36)
[2017-08-27 13:47] VITALS: BP 120/54
[2017-08-27 20:01] VITALS: BP 127/59
[2017-08-27] MEDS: ENOXAPARIN 40 MG/0.4 ML SQ SCH (20:46)
[2017-08-27] MEDS: SERTRALINE 100MG TABLET PO SCH (20:47)
[2017-08-28 02:45] VITALS: BP 132/65
[2017-08-28] MEDS: HYDROcodone/APAP 5/325 TABLET PO PRN ×5 (03:05→20:22)
[2017-08-28 06:53] VITALS: BP 124/67
[2017-08-28] MEDS: INSULIN ASPART 100 UNITS/ML, PEN SQ-INSULIN SCH ×4 (07:00→21:00)
[2017-08-28] MEDS: DIPHENOXYLATE/ATROPINE TABLET PO SCH ×2 (09:45→20:21)
[2017-08-28] MEDS: THIAMINE 100MG TABLET PO SCH (09:45)
[2017-08-28] MEDS: MULTIVITAMIN 1 TABLET PO SCH (09:45)
[2017-08-28] MEDS: GABAPENTIN 300 MG CAPSULE PO SCH ×3 (09:45→20:21)
[2017-08-28] MEDS: LEVOFLOXACIN 750 MG TABLET PO SCH (09:46)
[2017-08-28] MEDS: FERROUS SULFATE 325 MG TABLET PO SCH ×4 (09:46→17:30)
[2017-08-28] MEDS: FOLIC ACID 1 MG TABLET PO SCH (09:46)
[2017-08-28] MEDS: INSULIN DETEMIR 100 UNITS/ML, PEN SQ-INSULIN SCH ×2 (09:49→20:30)
[2017-08-28 15:17] VITALS: BP 125/68
[2017-08-28 20:01] VITALS: BP 127/58
[2017-08-28] MEDS: SERTRALINE 100MG TABLET PO SCH (20:21)
[2017-08-28] MEDS: ENOXAPARIN 40 MG/0.4 ML SQ SCH (20:29)
[2017-08-29] MEDS: HYDROcodone/APAP 5/325 TABLET PO PRN ×6 (00:19→22:04)
[2017-08-29 02:50] VITALS: BP 143/55
[2017-08-29 06:11] LABS: HEMATOCRIT 28.9 % (34.6-47.8); HEMOGLOBIN 9.4 g/dL (11.7-16.4); WHITE BLOOD COUNT 8.3 x10^3/uL (3.4-10)
[2017-08-29 06:21] LABS: ASPARTATE AMINO TRANSFERASE 50 U/L (15-37); BLOOD UREA NITROGEN 8 mg/dL (7-18)
[2017-08-29] MEDS: INSULIN ASPART 100 UNITS/ML, PEN SQ-INSULIN SCH ×4 (07:00→21:27)
[2017-08-29] MEDS: FERROUS SULFATE 325 MG TABLET PO SCH ×6 (07:46→16:18)
[2017-08-29] MEDS: MULTIVITAMIN 1 TABLET PO SCH (08:23)
[2017-08-29] MEDS: THIAMINE 100MG TABLET PO SCH (08:23)
[2017-08-29] MEDS: INSULIN DETEMIR 100 UNITS/ML, PEN SQ-INSULIN SCH ×2 (08:23→21:26)
[2017-08-29] MEDS: LEVOFLOXACIN 750 MG TABLET PO SCH (08:24)
[2017-08-29] MEDS: FOLIC ACID 1 MG TABLET PO SCH (08:24)
[2017-08-29] MEDS: DIPHENOXYLATE/ATROPINE TABLET PO SCH ×3 (08:24→21:21)
[2017-08-29] MEDS: GABAPENTIN 300 MG CAPSULE PO SCH ×3 (08:24→21:21)
[2017-08-29 08:35] VITALS: BP 146/67
[2017-08-29] MEDS ORDERED: MAGNESIUM SULFATE PMX 4GM/100M 100 ML IV ONE (09:30)
[2017-08-29] MEDS ORDERED: POTASSIUM PHOSPHATE 22 MEQ in SODIUM CHLORIDE 0.9% 500 ML IV ONE (09:30)
[2017-08-29] MEDS: morphine SULFATE 10 MG/ML, 1ML IVPush PRN (10:23)
[2017-08-29 15:49] VITALS: BP 134/67
[2017-08-29 19:41] VITALS: BP 131/71
[2017-08-29] MEDS: ENOXAPARIN 40 MG/0.4 ML SQ SCH (21:21)
[2017-08-29] MEDS: SERTRALINE 100MG TABLET PO SCH (21:21)
[2017-08-29] MEDS ORDERED: CALCIUM CARBONATE 500 MG TAB.CHEW PO PRN (22:30)
[2017-08-29] MEDS ORDERED: MAALOX/HYOSCYAMINE/LIDOCAINE 45 ML BTL PO ONE (22:30)
[2017-08-30 00:39] VITALS: BP 134/66
[2017-08-30] MEDS: HYDROcodone/APAP 5/325 TABLET PO PRN ×5 (04:52→21:15)
[2017-08-30 05:27] LABS: HEMATOCRIT 29.2 % (34.6-47.8); HEMOGLOBIN 9.6 g/dL (11.7-16.4); WHITE BLOOD COUNT 7.5 x10^3/uL (3.4-10)
[2017-08-30] MEDS ORDERED: CATHFLO-ALTEPLASE 2 MG/2 ML CATHFLUSH ONE (05:30)
[2017-08-30 05:49] LABS: BLOOD UREA NITROGEN 8 mg/dL (7-18)
[2017-08-30] MEDS: INSULIN ASPART 100 UNITS/ML, PEN SQ-INSULIN SCH ×4 (06:17→20:04)
[2017-08-30 07:17] VITALS: BP 120/64
[2017-08-30] MEDS: FERROUS SULFATE 325 MG TABLET PO SCH ×4 (08:00→16:54)
[2017-08-30] MEDS: GABAPENTIN 300 MG CAPSULE PO SCH ×3 (08:04→20:05)
[2017-08-30] MEDS: DIPHENOXYLATE/ATROPINE TABLET PO SCH ×2 (08:04→20:05)
[2017-08-30] MEDS: THIAMINE 100MG TABLET PO SCH (08:04)
[2017-08-30] MEDS: MULTIVITAMIN 1 TABLET PO SCH (08:05)
[2017-08-30] MEDS: LEVOFLOXACIN 750 MG TABLET PO SCH (08:05)
[2017-08-30] MEDS: FOLIC ACID 1 MG TABLET PO SCH (08:05)
[2017-08-30] MEDS: INSULIN DETEMIR 100 UNITS/ML, PEN SQ-INSULIN SCH ×2 (08:06→20:04)
[2017-08-30 13:34] VITALS: BP 142/71
[2017-08-30 18:54] VITALS: BP 124/61
[2017-08-30] MEDS: SERTRALINE 100MG TABLET PO SCH (20:05)
[2017-08-30] MEDS: ENOXAPARIN 40 MG/0.4 ML SQ SCH (20:05)
[2017-08-30] MEDS: OMEPRAZOLE 20 MG CAPSULE.DR PO SCH (20:05)
[2017-08-31 00:15] VITALS: BP 112/60
[2017-08-31] MEDS: HYDROcodone/APAP 5/325 TABLET PO PRN ×6 (01:18→23:13)
[2017-08-31] MEDS: SUMATRIPTAN 25 MG TABLET PO PRN (03:49)
[2017-08-31] MEDS: INSULIN ASPART 100 UNITS/ML, PEN SQ-INSULIN SCH ×4 (06:22→20:51)
[2017-08-31 07:14] VITALS: BP 148/68
[2017-08-31] MEDS: THIAMINE 100MG TABLET PO SCH (07:49)
[2017-08-31] MEDS: DIPHENOXYLATE/ATROPINE TABLET PO SCH ×2 (07:49→20:50)
[2017-08-31] MEDS: FOLIC ACID 1 MG TABLET PO SCH (07:50)
[2017-08-31] MEDS: FERROUS SULFATE 325 MG TABLET PO SCH ×3 (07:50→16:30)
[2017-08-31] MEDS: MULTIVITAMIN 1 TABLET PO SCH (07:50)
[2017-08-31] MEDS: OMEPRAZOLE 20 MG CAPSULE.DR PO SCH ×2 (07:50→20:50)
[2017-08-31] MEDS: LEVOFLOXACIN 750 MG TABLET PO SCH (07:50)
[2017-08-31] MEDS: GABAPENTIN 300 MG CAPSULE PO SCH ×3 (07:50→20:50)
[2017-08-31] MEDS: INSULIN DETEMIR 100 UNITS/ML, PEN SQ-INSULIN SCH ×2 (07:51→20:50)
[2017-08-31] MEDS: morphine SULFATE 10 MG/ML, 1ML IVPush PRN (11:28)
[2017-08-31 12:43] VITALS: BP 143/79
[2017-08-31 20:37] VITALS: BP 135/70
[2017-08-31] MEDS: ENOXAPARIN 40 MG/0.4 ML SQ SCH (20:50)
[2017-08-31] MEDS: SERTRALINE 100MG TABLET PO SCH (20:50)
[2017-09-01 03:04] VITALS: BP 132/74
[2017-09-01] MEDS: HYDROcodone/APAP 5/325 TABLET PO PRN ×5 (03:10→20:44)
[2017-09-01 05:32] LABS: HEMATOCRIT 28.8 % (34.6-47.8); HEMOGLOBIN 9.5 g/dL (11.7-16.4)
[2017-09-01 06:25] LABS: ASPARTATE AMINO TRANSFERASE 45 U/L (15-37); BLOOD UREA NITROGEN 10 mg/dL (7-18)
[2017-09-01] MEDS: INSULIN ASPART 100 UNITS/ML, PEN SQ-INSULIN SCH ×4 (06:40→20:58)
[2017-09-01 06:51] LABS: DIFF TOTAL CELLS COUNTED 100 CELL DIFF
[2017-09-01 06:56] LABS: ANISOCYTOSIS 2+; HYPOCHROMIA 1+; MICROCYTOSIS 1+; POIKILOCYTOSIS 1+; VERIFY COUNTS? YES
[2017-09-01 07:49] VITALS: BP 144/68
[2017-09-01] MEDS: FERROUS SULFATE 325 MG TABLET PO SCH ×3 (07:57→16:26)
[2017-09-01] MEDS: GABAPENTIN 300 MG CAPSULE PO SCH ×3 (07:57→20:45)
[2017-09-01] MEDS: OMEPRAZOLE 20 MG CAPSULE.DR PO SCH ×2 (07:58→20:45)
[2017-09-01] MEDS: MULTIVITAMIN 1 TABLET PO SCH (07:58)
[2017-09-01] MEDS: FOLIC ACID 1 MG TABLET PO SCH (07:58)
[2017-09-01] MEDS: INSULIN DETEMIR 100 UNITS/ML, PEN SQ-INSULIN SCH ×2 (07:58→20:59)
[2017-09-01] MEDS: THIAMINE 100MG TABLET PO SCH (07:58)
[2017-09-01] MEDS: DIPHENOXYLATE/ATROPINE TABLET PO SCH ×2 (07:58→20:45)
[2017-09-01 14:36] VITALS: BP 149/74
[2017-09-01] MEDS: SERTRALINE 100MG TABLET PO SCH (20:45)
[2017-09-01] MEDS: ENOXAPARIN 40 MG/0.4 ML SQ SCH (20:47)
[2017-09-01 21:11] VITALS: BP 128/66
[2017-09-02 02:24] VITALS: BP 108/61
[2017-09-02] MEDS: HYDROcodone/APAP 5/325 TABLET PO PRN ×5 (02:36→21:17)
[2017-09-02] MEDS: INSULIN ASPART 100 UNITS/ML, PEN SQ-INSULIN SCH ×4 (06:43→21:23)
[2017-09-02 09:07] VITALS: BP 131/70
[2017-09-02] MEDS: OMEPRAZOLE 20 MG CAPSULE.DR PO SCH ×2 (09:20→21:18)
[2017-09-02] MEDS: DIPHENOXYLATE/ATROPINE TABLET PO SCH ×2 (09:20→21:18)
[2017-09-02] MEDS: FOLIC ACID 1 MG TABLET PO SCH (09:20)
[2017-09-02] MEDS: MULTIVITAMIN 1 TABLET PO SCH (09:20)
[2017-09-02] MEDS: THIAMINE 100MG TABLET PO SCH (09:20)
[2017-09-02] MEDS: GABAPENTIN 300 MG CAPSULE PO SCH ×3 (09:20→21:18)
[2017-09-02] MEDS: FERROUS SULFATE 325 MG TABLET PO SCH ×3 (09:20→17:56)
[2017-09-02] MEDS: INSULIN DETEMIR 100 UNITS/ML, PEN SQ-INSULIN SCH ×2 (09:21→21:27)
[2017-09-02 14:59] VITALS: BP 115/65
[2017-09-02 20:52] VITALS: BP 123/68
[2017-09-02] MEDS: SERTRALINE 100MG TABLET PO SCH (21:18)
[2017-09-02] MEDS: ENOXAPARIN 40 MG/0.4 ML SQ SCH (21:18)
[2017-09-03] MEDS: HYDROcodone/APAP 5/325 TABLET PO PRN ×4 (02:14→18:30)
[2017-09-03 02:22] VITALS: BP 130/67
[2017-09-03] MEDS: INSULIN ASPART 100 UNITS/ML, PEN SQ-INSULIN SCH ×4 (07:00→20:07)
[2017-09-03 07:49] VITALS: BP 134/73
[2017-09-03] MEDS: DIPHENOXYLATE/ATROPINE TABLET PO SCH ×2 (08:14→20:07)
[2017-09-03] MEDS: FOLIC ACID 1 MG TABLET PO SCH (08:14)
[2017-09-03] MEDS: MULTIVITAMIN 1 TABLET PO SCH (08:14)
[2017-09-03] MEDS: FERROUS SULFATE 325 MG TABLET PO SCH ×3 (08:14→18:30)
[2017-09-03] MEDS: GABAPENTIN 300 MG CAPSULE PO SCH ×3 (08:15→20:08)
[2017-09-03] MEDS: INSULIN DETEMIR 100 UNITS/ML, PEN SQ-INSULIN SCH ×2 (08:15→20:09)
[2017-09-03] MEDS: THIAMINE 100MG TABLET PO SCH (08:21)
[2017-09-03] MEDS: OMEPRAZOLE 20 MG CAPSULE.DR PO SCH ×2 (08:21→20:08)
[2017-09-03] MEDS: morphine SULFATE 10 MG/ML, 1ML IVPush PRN (11:07)
[2017-09-03 13:33] VITALS: BP 128/71
[2017-09-03] MEDS: ENOXAPARIN 40 MG/0.4 ML SQ SCH (20:08)
[2017-09-03] MEDS: SERTRALINE 100MG TABLET PO SCH (20:08)
[2017-09-03 20:59] VITALS: BP 144/71
[2017-09-04 01:54] VITALS: BP 128/69
[2017-09-04] MEDS: HYDROcodone/APAP 5/325 TABLET PO PRN ×5 (05:19→21:33)
[2017-09-04] MEDS: INSULIN ASPART 100 UNITS/ML, PEN SQ-INSULIN SCH ×4 (06:32→21:07)
[2017-09-04 07:50] VITALS: BP 138/70
[2017-09-04] MEDS: OMEPRAZOLE 20 MG CAPSULE.DR PO SCH ×2 (09:04→20:42)
[2017-09-04] MEDS: THIAMINE 100MG TABLET PO SCH (09:04)
[2017-09-04] MEDS: DIPHENOXYLATE/ATROPINE TABLET PO SCH ×2 (09:05→20:42)
[2017-09-04] MEDS: GABAPENTIN 300 MG CAPSULE PO SCH ×3 (09:05→20:42)
[2017-09-04] MEDS: FERROUS SULFATE 325 MG TABLET PO SCH ×3 (09:05→17:06)
[2017-09-04] MEDS: MULTIVITAMIN 1 TABLET PO SCH (09:05)
[2017-09-04] MEDS: FOLIC ACID 1 MG TABLET PO SCH (09:05)
[2017-09-04] MEDS: INSULIN DETEMIR 100 UNITS/ML, PEN SQ-INSULIN SCH ×2 (09:11→21:33)
[2017-09-04 13:43] VITALS: BP 130/71
[2017-09-04 20:37] VITALS: BP 124/68
[2017-09-04] MEDS: ENOXAPARIN 40 MG/0.4 ML SQ SCH (20:42)
[2017-09-04] MEDS: SERTRALINE 100MG TABLET PO SCH (20:42)
[2017-09-05 01:54] VITALS: BP 121/57
[2017-09-05] MEDS: HYDROcodone/APAP 5/325 TABLET PO PRN ×4 (05:07→19:17)
[2017-09-05 07:45] VITALS: BP 134/67
[2017-09-05] MEDS: INSULIN ASPART 100 UNITS/ML, PEN SQ-INSULIN SCH ×4 (08:22→22:24)
[2017-09-05] MEDS: OMEPRAZOLE 20 MG CAPSULE.DR PO SCH ×2 (08:47→22:23)
[2017-09-05] MEDS: GABAPENTIN 300 MG CAPSULE PO SCH ×3 (08:47→22:23)
[2017-09-05] MEDS: MULTIVITAMIN 1 TABLET PO SCH (08:47)
[2017-09-05] MEDS: INSULIN DETEMIR 100 UNITS/ML, PEN SQ-INSULIN SCH ×2 (08:47→22:24)
[2017-09-05] MEDS: DIPHENOXYLATE/ATROPINE TABLET PO SCH ×2 (08:47→22:23)
[2017-09-05] MEDS: FOLIC ACID 1 MG TABLET PO SCH (08:47)
[2017-09-05] MEDS: FERROUS SULFATE 325 MG TABLET PO SCH ×3 (08:47→16:15)
[2017-09-05] MEDS: THIAMINE 100MG TABLET PO SCH (08:48)
[2017-09-05] MEDS: morphine SULFATE 10 MG/ML, 1ML IVPush PRN (10:54)
[2017-09-05 14:35] VITALS: BP 115/69
[2017-09-05 19:45] VITALS: BP 122/72
[2017-09-05] MEDS: SERTRALINE 100MG TABLET PO SCH (22:23)
[2017-09-05] MEDS: ENOXAPARIN 40 MG/0.4 ML SQ SCH (22:26)
[2017-09-06] MEDS: HYDROcodone/APAP 5/325 TABLET PO PRN ×5 (01:12→23:04)
[2017-09-06 01:26] VITALS: BP 127/74
[2017-09-06] MEDS: INSULIN ASPART 100 UNITS/ML, PEN SQ-INSULIN SCH ×4 (07:00→21:16)
[2017-09-06 07:17] VITALS: BP 113/59
[2017-09-06 07:27] LABS: HEMATOCRIT 29.6 % (34.6-47.8); HEMOGLOBIN 9.8 g/dL (11.7-16.4); WHITE BLOOD COUNT 6.9 x10^3/uL (3.4-10)
[2017-09-06 07:28] LABS: DIFF TOTAL CELLS COUNTED 100 CELL DIFF
[2017-09-06] MEDS: FOLIC ACID 1 MG TABLET PO SCH (08:42)
[2017-09-06] MEDS: DIPHENOXYLATE/ATROPINE TABLET PO SCH ×2 (08:43→21:15)
[2017-09-06] MEDS: GABAPENTIN 300 MG CAPSULE PO SCH ×3 (08:43→21:15)
[2017-09-06] MEDS: INSULIN DETEMIR 100 UNITS/ML, PEN SQ-INSULIN SCH ×2 (08:43→21:16)
[2017-09-06] MEDS: OMEPRAZOLE 20 MG CAPSULE.DR PO SCH ×2 (08:43→21:15)
[2017-09-06] MEDS: MULTIVITAMIN 1 TABLET PO SCH (08:43)
[2017-09-06] MEDS: THIAMINE 100MG TABLET PO SCH (08:43)
[2017-09-06] MEDS: FERROUS SULFATE 325 MG TABLET PO SCH ×3 (08:43→17:16)
[2017-09-06 09:19] LABS: ANISOCYTOSIS 2+; HYPOCHROMIA 1+; MICROCYTOSIS 1+; POIKILOCYTOSIS 1+
[2017-09-06 09:20] LABS: VERIFY COUNTS? YES
[2017-09-06 13:20] VITALS: BP 133/74
[2017-09-06 20:27] VITALS: BP 155/79
[2017-09-06] MEDS: SERTRALINE 100MG TABLET PO SCH (21:15)
[2017-09-06] MEDS: ENOXAPARIN 40 MG/0.4 ML SQ SCH (21:15)
[2017-09-07 02:11] VITALS: BP 134/69
[2017-09-07] MEDS: HYDROcodone/APAP 5/325 TABLET PO PRN ×4 (03:15→21:02)
[2017-09-07] MEDS: INSULIN ASPART 100 UNITS/ML, PEN SQ-INSULIN SCH ×4 (07:00→23:19)
[2017-09-07] MEDS: INSULIN DETEMIR 100 UNITS/ML, PEN SQ-INSULIN SCH ×2 (09:00→23:19)
[2017-09-07] MEDS: MULTIVITAMIN 1 TABLET PO SCH (09:26)
[2017-09-07] MEDS: THIAMINE 100MG TABLET PO SCH (09:26)
[2017-09-07] MEDS: DIPHENOXYLATE/ATROPINE TABLET PO SCH ×2 (09:27→21:03)
[2017-09-07] MEDS: FOLIC ACID 1 MG TABLET PO SCH (09:27)
[2017-09-07] MEDS: GABAPENTIN 300 MG CAPSULE PO SCH ×3 (09:27→21:03)
[2017-09-07] MEDS: FERROUS SULFATE 325 MG TABLET PO SCH ×3 (09:27→17:12)
[2017-09-07 09:47] VITALS: BP 156/77
[2017-09-07] MEDS: OMEPRAZOLE 20 MG CAPSULE.DR PO SCH ×2 (10:55→21:03)
[2017-09-07] MEDS: morphine SULFATE 10 MG/ML, 1ML IVPush PRN (10:55)
[2017-09-07 14:02] VITALS: BP 136/71
[2017-09-07 19:21] VITALS: BP 157/72
[2017-09-07] MEDS: ENOXAPARIN 40 MG/0.4 ML SQ SCH (21:02)
[2017-09-07] MEDS: SERTRALINE 100MG TABLET PO SCH (21:03)
[2017-09-08 01:03] VITALS: BP 158/77
[2017-09-08] MEDS: HYDROcodone/APAP 5/325 TABLET PO PRN ×5 (05:45→22:36)
[2017-09-08] MEDS ORDERED: CATHFLO-ALTEPLASE 2 MG/2 ML CATHFLUSH ONE (06:00)
[2017-09-08] MEDS: INSULIN ASPART 100 UNITS/ML, PEN SQ-INSULIN SCH ×4 (07:00→21:00)
[2017-09-08 08:00] VITALS: BP 158/73
[2017-09-08] MEDS: INSULIN DETEMIR 100 UNITS/ML, PEN SQ-INSULIN SCH ×2 (09:00→21:34)
[2017-09-08] MEDS: DIPHENOXYLATE/ATROPINE TABLET PO SCH ×2 (10:16→21:32)
[2017-09-08] MEDS: GABAPENTIN 300 MG CAPSULE PO SCH ×3 (10:16→21:32)
[2017-09-08] MEDS: MULTIVITAMIN 1 TABLET PO SCH (10:16)
[2017-09-08] MEDS: FOLIC ACID 1 MG TABLET PO SCH (10:16)
[2017-09-08] MEDS: OMEPRAZOLE 20 MG CAPSULE.DR PO SCH ×2 (10:16→21:33)
[2017-09-08] MEDS: THIAMINE 100MG TABLET PO SCH (10:17)
[2017-09-08] MEDS: FERROUS SULFATE 325 MG TABLET PO SCH ×3 (10:17→17:23)
[2017-09-08 12:50] VITALS: BP 141/74
[2017-09-08] MEDS: SERTRALINE 100MG TABLET PO SCH (21:33)
[2017-09-08] MEDS: ENOXAPARIN 40 MG/0.4 ML SQ SCH (21:34)
[2017-09-08 21:36] VITALS: BP 155/81
[2017-09-09] MEDS: HYDROcodone/APAP 5/325 TABLET PO PRN ×5 (03:04→20:35)
[2017-09-09 03:06] VITALS: BP 139/73
[2017-09-09] MEDS: INSULIN ASPART 100 UNITS/ML, PEN SQ-INSULIN SCH ×4 (07:00→22:09)
[2017-09-09] MEDS: OMEPRAZOLE 20 MG CAPSULE.DR PO SCH ×2 (07:47→21:07)
[2017-09-09] MEDS: FERROUS SULFATE 325 MG TABLET PO SCH ×3 (07:47→16:40)
[2017-09-09 08:20] VITALS: BP 133/70
[2017-09-09] MEDS: MULTIVITAMIN 1 TABLET PO SCH (09:14)
[2017-09-09] MEDS: THIAMINE 100MG TABLET PO SCH (09:14)
[2017-09-09] MEDS: FOLIC ACID 1 MG TABLET PO SCH (09:14)
[2017-09-09] MEDS: GABAPENTIN 300 MG CAPSULE PO SCH ×3 (09:15→21:07)
[2017-09-09] MEDS: INSULIN DETEMIR 100 UNITS/ML, PEN SQ-INSULIN SCH ×2 (09:15→22:10)
[2017-09-09] MEDS: DIPHENOXYLATE/ATROPINE TABLET PO SCH ×2 (09:15→21:07)
[2017-09-09 14:41] VITALS: BP 136/70
[2017-09-09 19:33] VITALS: BP 153/72
[2017-09-09] MEDS: SERTRALINE 100MG TABLET PO SCH (21:07)
[2017-09-09] MEDS: ENOXAPARIN 40 MG/0.4 ML SQ SCH (21:07)
[2017-09-10] MEDS: HYDROcodone/APAP 5/325 TABLET PO PRN ×4 (00:32→20:28)
[2017-09-10 02:49] VITALS: BP 135/70
[2017-09-10] MEDS: INSULIN ASPART 100 UNITS/ML, PEN SQ-INSULIN SCH ×4 (07:00→20:33)
[2017-09-10 07:33] VITALS: BP 107/74
[2017-09-10] MEDS: THIAMINE 100MG TABLET PO SCH (08:34)
[2017-09-10] MEDS: FOLIC ACID 1 MG TABLET PO SCH (08:34)
[2017-09-10] MEDS: MULTIVITAMIN 1 TABLET PO SCH (08:34)
[2017-09-10] MEDS: DIPHENOXYLATE/ATROPINE TABLET PO SCH ×2 (08:34→20:27)
[2017-09-10] MEDS: OMEPRAZOLE 20 MG CAPSULE.DR PO SCH ×2 (08:34→20:27)
[2017-09-10] MEDS: GABAPENTIN 300 MG CAPSULE PO SCH ×3 (08:34→20:27)
[2017-09-10] MEDS: FERROUS SULFATE 325 MG TABLET PO SCH ×3 (08:35→16:43)
[2017-09-10] MEDS: INSULIN DETEMIR 100 UNITS/ML, PEN SQ-INSULIN SCH (08:35)
[2017-09-10] MEDS: morphine SULFATE 10 MG/ML, 1ML IVPush PRN (08:53)
[2017-09-10] MEDS ORDERED: FENTANYL 25 MCG PATCH TD SCH (10:00)
[2017-09-10] MEDS ORDERED: FENTANYL REMOVE PATCH NOTE XX SCH (10:00)
[2017-09-10 12:57] VITALS: BP 129/73
[2017-09-10] MEDS ORDERED: FENT1PAT75 TD (18:35)
[2017-09-10] MEDS ORDERED: SERT100T5 PO (18:35)
[2017-09-10] MEDS ORDERED: GABA300C10 PO (18:35)
[2017-09-10] MEDS ORDERED: THIA100T6 PO (18:35)
[2017-09-10] MEDS ORDERED: HYDR-3240 PO (18:35)
[2017-09-10] MEDS ORDERED: OMEP-110 PO (18:35)
[2017-09-10] MEDS ORDERED: POLY17PO5 PO (18:35)
[2017-09-10] MEDS ORDERED: FERR-36 PO (18:35)
[2017-09-10] MEDS ORDERED: FOLI-17 PO (18:35)
[2017-09-10] MEDS ORDERED: TRAM50TA2 PO (18:35)
[2017-09-10] MEDS ORDERED: MULT1TAB60 PO (18:35)
[2017-09-10] MEDS ORDERED: GLIM1TAB PO (18:35)
[2017-09-10 19:54] VITALS: BP 150/72
[2017-09-10] MEDS: SERTRALINE 100MG TABLET PO SCH (20:27)
[2017-09-10] MEDS: ENOXAPARIN 40 MG/0.4 ML SQ SCH (20:27)
[2017-09-11 02:44] VITALS: BP 146/80
[2017-09-11] MEDS: INSULIN ASPART 100 UNITS/ML, PEN SQ-INSULIN SCH ×2 (06:39→11:00)
[2017-09-11 07:30] VITALS: BP 158/76
[2017-09-11] MEDS ORDERED: GLIM1TAB PO (07:54)
[2017-09-11] MEDS ORDERED: LOSA25TA2 PO (07:54)
[2017-09-11] MEDS ORDERED: GLIMEPIRIDE 1 MG TABLET PO SCH (08:00)
[2017-09-11] MEDS: OMEPRAZOLE 20 MG CAPSULE.DR PO SCH (08:03)
[2017-09-11] MEDS: THIAMINE 100MG TABLET PO SCH (08:03)
[2017-09-11] MEDS: MULTIVITAMIN 1 TABLET PO SCH (08:03)
[2017-09-11] MEDS: GABAPENTIN 300 MG CAPSULE PO SCH (08:03)
[2017-09-11] MEDS: DIPHENOXYLATE/ATROPINE TABLET PO SCH (08:03)
[2017-09-11] MEDS: FERROUS SULFATE 325 MG TABLET PO SCH ×2 (08:03→11:24)
[2017-09-11] MEDS: HYDROcodone/APAP 5/325 TABLET PO PRN (08:03)
[2017-09-11] MEDS: FOLIC ACID 1 MG TABLET PO SCH (08:04)
[2017-09-11] MEDS ORDERED: LOSARTAN 25MG TABLET PO SCH (09:00)
[2017-09-11 11:40] VITALS: BP 153/76
[2017-09-11] MEDS ORDERED: PNEUMOCOCCAL 23 VACCINE IM-VACC ONE (12:00)
== END 2017-09-11 12:47 | DRG 853 ==
LOC: 4WST 14:44 → CCU 20:37 → CSU 08-10 07:43 → CCU 08-10 10:21 → 4NOR 08-13 11:07
PROVIDERS: ADMIT Hospitalist; ATTEND Family Medicine
PROC: 30233N1 Transfusion of Nonautologous Red Blood Cells into Peripheral Vein, Percutaneous Approach (ICD-10-PCS; 2017-07-30)
PROC: 0T9B70Z Drainage of Bladder with Drainage Device, Via Natural or Artificial Opening (ICD-10-PCS; 2017-07-30)
PROC: 0KBQ0ZZ Excision of Right Upper Leg Muscle, Open Approach (ICD-10-PCS; principal; 2017-07-30 19:00)
PROC: 0BH17EZ Insertion of Endotracheal Airway into Trachea, Via Natural or Artificial Opening (ICD-10-PCS; 2017-07-31)
PROC: 5A1955Z Respiratory Ventilation, Greater than 96 Consecutive Hours (ICD-10-PCS; 2017-07-31)
PROC: 05HM33Z Insertion of Infusion Device into Right Internal Jugular Vein, Percutaneous Approach (ICD-10-PCS; 2017-07-31)
PROC: B543ZZA Ultrasonography of Right Jugular Veins, Guidance (ICD-10-PCS; 2017-07-31)
PROC: 0JBL0ZZ Excision of Right Upper Leg Subcutaneous Tissue and Fascia, Open Approach (ICD-10-PCS; 2017-08-02)
PROC: 5A09357 Assistance with Respiratory Ventilation, Less than 24 Consecutive Hours, Continuous Positive Airway Pressure (ICD-10-PCS; 2017-08-06)
PROC: 02HV33Z Insertion of Infusion Device into Superior Vena Cava, Percutaneous Approach (ICD-10-PCS; 2017-08-07)
PROC: B548ZZA Ultrasonography of Superior Vena Cava, Guidance (ICD-10-PCS; 2017-08-07)
DX: A41.9 Sepsis, unspecified organism (principal); J96.00 Acute respiratory failure, unspecified whether with hypoxia or hypercapnia; N17.0 Acute kidney failure with tubular necrosis; M72.6 Necrotizing fasciitis; E43 Unspecified severe protein-calorie malnutrition; R65.21 Severe sepsis with septic shock; A04.72 Enterocolitis due to Clostridium difficile, not specified as recurrent; J81.1 Chronic pulmonary edema; J18.9 Pneumonia, unspecified organism; D68.9 Coagulation defect, unspecified; D62 Acute posthemorrhagic anemia; E87.0 Hyperosmolality and hypernatremia; J98.11 Atelectasis; L02.415 Cutaneous abscess of right lower limb; T79.7XXA Traumatic subcutaneous emphysema, initial encounter; Z99.11 Dependence on respirator [ventilator] status; E11.649 Type 2 diabetes mellitus with hypoglycemia without coma; E83.39 Other disorders of phosphorus metabolism; B96.6 Bacteroides fragilis [B. fragilis] as the cause of diseases classified elsewhere; D50.9 Iron deficiency anemia, unspecified; Z68.37 Body mass index [BMI] 37.0-37.9, adult; E66.9 Obesity, unspecified; E87.8 Other disorders of electrolyte and fluid balance, not elsewhere classified; F10.10 Alcohol abuse, uncomplicated; G43.909 Migraine, unspecified, not intractable, without status migrainosus; K70.30 Alcoholic cirrhosis of liver without ascites; R13.10 Dysphagia, unspecified; Z51.5 Encounter for palliative care; Z83.3 Family history of diabetes mellitus; Z96.651 Presence of right artificial knee joint
CPT/HCPCS: 36415; 36569; 36600; 71010; 72170; 72195; 76937; 77001; 80048; 80053; 80076; 80202; 81001; 82140; 82565; 82728; 82803; 82962; 83036; 83540; 83550; 83735; 84100; 84466; 84478; 85025; 85610; 85651; 85730; 86140; 86480; 86850; 86900; 86923; 87015; 87040; 87070; 87075; 87076; 87077; 87081; 87086; 87102; 87106; 87116; 87186; 87205; 87206; 87324; 87493; 90732; 94002; 94003; 94640; J0295; J1650; J1815; J1956; J2250; J2543; J2704; J2997; J3370; J3411; J7042; J7608; J7620; P9047; Q9967; C1751; C9113; J0330; J1940; J2270; J2370; J3475; J7030; J7040; J7050; P9016

== ENCOUNTER 2018-01-14 03:05 | Inpatient (IN) | payer MEDICAID ==
[~2018-01-14] VITALS: Ht 157.5 cm; Wt 84.0 kg
[~2018-01-14 03:05] MED LIST: ESOM40CA PO; FENT1PAT75 TD; FERR-51 PO; FOLI-17 PO; GABA300C10 PO; GABA600T2 PO; GLIM1TAB PO; HYDR-3240 PO; HYDR-883 PO; INSU100I28 SC; LOSA100T6 PO; LOSA25TA2 PO; MELO15TA24 PO; MORP45CP4 PO; MULT1TAB60 PO; OMEP-110 PO; POLY17PO5 PO; PROM25TA10 PO; SERT100T5 PO; SUMA25TA3 PO; THIA100T6 PO; TRAM50TA2 PO; ZOLP10TA5 PO; iron PO
[2018-01-14] MEDS ORDERED: PIPERACILLIN/TAZO/PMX 3.375GM 50 ML ONE ×2 (03:21→03:27)
[2018-01-14] MEDS ORDERED: SODIUM CHLORIDE 0.9% 1,000ML IVBOLUS ONE ×2 (03:30→04:30)
[2018-01-14] MEDS ORDERED: VANCOMYCIN 1,600 MG in SODIUM CHLORIDE 0.9% 250 ML IV ONE (03:30)
[2018-01-14] MEDS ORDERED: VANCOMYCIN PER PHARMACY IV ONE (03:30)
[2018-01-14] MEDS ORDERED: PIPERACILLIN/TAZO/PMX 3.375GM 50 ML IVPB ONE (03:30)
[2018-01-14 03:46] LABS: MEAN CORPUSCULAR HEMOGLOBIN 30.5 pg (27.0-34.8); MEAN CORPUSCULAR HGB CONC 32.8 g/dL (32.4-35.8); MEAN CORPUSCULAR VOLUME 92.9 fL (80-100); MEAN PLATELET VOLUME 8.6 fL (7.4-10.4); PLATELET COUNT 279 x10^3/uL (130-400); RED BLOOD COUNT 4.23 x10^6/uL (3.82-5.3); RED CELL DISTRIBUTION WIDTH 17.6 % (9.6-15.2)
[2018-01-14 03:49] LABS: MD YES
[2018-01-14 03:57] LABS: ALANINE AMINOTRANSFERASE 19 U/L (12-78); ALBUMIN 1.7 g/dL (3.4-5.0); ANION GAP 14 mmol/L (5-15); CALCIUM 7.6 mg/dL (8.5-10.1); CHLORIDE 112 mmol/L (98-107); CREATININE 1.05 mg/dL (0.55-1.02)
[2018-01-14 04:01] LABS: ALKALINE PHOSPHATASE 188 U/L (45-117); BILIRUBIN,TOTAL 1.6 mg/dL (0.2-1.0); TOTAL PROTEIN 7.2 g/dL (6.4-8.2)
[2018-01-14 04:02] LABS: BAND#(MANUAL) 3.74 x10^3/uL; BANDS%(MANUAL) 39 % (0-7); LYMPH#(MANUAL) 0.38 x10^3/uL (1-3.4); LYMPHS% (MANUAL) 4 % (22-44); METAMYELOCYTES% (MANUAL) 1 % (0-1); MONOS#(MANUAL) 0.38 x10^3/uL (0.3-2.7); MONOS% (MANUAL) 4 % (2-9); MYELOCYTES% (MANUAL) 1 % (0-0); SEGS% (MANUAL) 51 % (42-75)
[2018-01-14 04:03] LABS: ANISOCYTOSIS 1+; HYPOCHROMIA 1+; MICROCYTOSIS 1+; TROPONIN I 0.598 ng/mL (0.000-0.045)
[2018-01-14 04:05] LABS: <PLATELET ESTIMATE> ADEQUATE; <PLT MORPHOLOGY> NORMAL PLT MORPH
[2018-01-14] MEDS ORDERED: ONDANSETRON 2MG/ML, 2ML IVPush PRN ×2 (04:30→06:00)
[2018-01-14] MEDS ORDERED: ACET325S PO (04:52)
[2018-01-14] MEDS ORDERED: CALC400T6 PO (04:52)
[2018-01-14] MEDS ORDERED: LOSA25TA2 PO (04:52)
[2018-01-14] MEDS ORDERED: PANT40TA5 PO (04:52)
[2018-01-14] MEDS ORDERED: MAG355OR14 PO (04:52)
[2018-01-14] MEDS ORDERED: MORP30CA15 PO (04:52)
[2018-01-14] MEDS ORDERED: BISA10SU54 PR (04:52)
[2018-01-14] MEDS ORDERED: DOCUSATE 100 MG CAPSULE PO PRN (06:00)
[2018-01-14] MEDS ORDERED: morphine SULFATE 10 MG/ML, 1ML IVPush PRN (06:00)
[2018-01-14] MEDS ORDERED: ENALAPRILAT 1.25 MG/ML, 2ML IVPush PRN (06:00)
[2018-01-14] MEDS ORDERED: DEXTROSE 50%, 50ML SYRINGE IVPush ONE (06:00)
[2018-01-14] MEDS ORDERED: POLYETHYLENE GLYCOL 17 GM PACKET PO PRN (06:00)
[2018-01-14] MEDS ORDERED: VANCOMYCIN PER PHARMACY MC PRN (06:00)
[2018-01-14] MEDS ORDERED: SUMATRIPTAN 25 MG TABLET PO PRN (06:00)
[2018-01-14 06:22] LABS: CLOSTRIDIUM DIFFICILE ANTIGEN POSITIVE; CLOSTRIDIUM DIFFICILE TOXIN NEGATIVE (Negative)
[2018-01-14] MEDS ORDERED: OMNIPAQUE 350 MG/ML, 100ML BOTTLE ONE (06:32)
[2018-01-14 06:35] LABS: FREE T4 (FREE THYROXINE) 1.36 ng/dL (0.76-1.46); THYROID STIMULATING HORMONE 0.198 mIU/L (0.358-3.740)
[2018-01-14 06:39] LABS: HEMOGLOBIN A1C 5.5 % (4.2-6.3)
[2018-01-14] MEDS ORDERED: PHARMACOKINETIC MONITORING MC PRN (07:00)
[2018-01-14] MEDS: INSULIN LISPRO 100 UNITS/ML, PEN SQ-INSULIN SCH ×4 (07:00→20:53)
[2018-01-14] MEDS ORDERED: PHARMACOKINETIC CONSULTATION MC ONE (07:00)
[2018-01-14] MEDS: HYDROcodone/APAP 5/325 TABLET PO PRN (07:32)
[2018-01-14] MEDS: HEPARIN 5,000 UNITS/ML, 1ML SQ SCH ×3 (07:37→20:52)
[2018-01-14 08:45] LABS: TROPONIN I 0.566 ng/mL (0.000-0.045)
[2018-01-14] MEDS: PIPERACILLIN/TAZO/PMX 3.375GM 50 ML IV SCH ×3 (08:51→20:02)
[2018-01-14] MEDS: MULTIVITAMIN 1 TABLET PO SCH (08:52)
[2018-01-14] MEDS: VANCOMYCIN 50 MG/ML ORAL SUSP PO SCH ×3 (08:52→20:52)
[2018-01-14] MEDS: FOLIC ACID 1 MG TABLET PO SCH (08:52)
[2018-01-14] MEDS: GABAPENTIN 300 MG CAPSULE PO SCH ×3 (08:52→20:51)
[2018-01-14] MEDS: FERROUS SULFATE 325 MG TABLET PO SCH ×3 (08:52→16:14)
[2018-01-14] MEDS: THIAMINE 100MG TABLET PO SCH (09:03)
[2018-01-14 09:33] LABS: MICROSCOPIC INDICATED
[2018-01-14 09:47] LABS: CULTURE INDICATED? NO
[2018-01-14] MEDS ORDERED: DEXTROSE 50%, 50ML SYRINGE ONE (10:27)
[2018-01-14] MEDS: D5%-0.9% NACL 1,000 ML IV SCH (11:21)
[2018-01-14] MEDS: OXYcodone IR 5MG TABLET PO PRN ×2 (12:37→18:16)
[2018-01-14 14:23] LABS: TROPONIN I 0.519 ng/mL (0.000-0.045)
[2018-01-14] MEDS: SERTRALINE 100MG TABLET PO SCH (20:51)
[2018-01-15] MEDS: D5%-0.9% NACL 1,000 ML IV SCH (00:03)
[2018-01-15] MEDS: OXYcodone IR 5MG TABLET PO PRN (00:04)
[2018-01-15 02:00] VITALS: BP 143/72
[2018-01-15] MEDS: CALCIUM CARBONATE 500 MG TAB.CHEW PO PRN (02:52)
[2018-01-15] MEDS: VANCOMYCIN 50 MG/ML ORAL SUSP PO SCH ×4 (02:52→22:25)
[2018-01-15] MEDS: PIPERACILLIN/TAZO/PMX 3.375GM 50 ML IV SCH ×4 (02:52→21:10)
[2018-01-15] MEDS ORDERED: VANCOMYCIN 1,500 MG in SODIUM CHLORIDE 0.9% 250 ML IV SCH (04:00)
[2018-01-15 04:41] LABS: MEAN CORPUSCULAR HEMOGLOBIN 30.5 pg (27.0-34.8); MEAN CORPUSCULAR HGB CONC 32.9 g/dL (32.4-35.8); MEAN CORPUSCULAR VOLUME 92.9 fL (80-100); MEAN PLATELET VOLUME 8.9 fL (7.4-10.4); PLATELET COUNT 212 x10^3/uL (130-400); RED BLOOD COUNT 3.93 x10^6/uL (3.82-5.3); RED CELL DISTRIBUTION WIDTH 17.9 % (9.6-15.2)
[2018-01-15 04:45] LABS: CHLORIDE 114 mmol/L (98-107)
[2018-01-15 04:54] LABS: ALANINE AMINOTRANSFERASE 21 U/L (12-78); ALBUMIN 1.4 g/dL (3.4-5.0); ALKALINE PHOSPHATASE 88 U/L (45-117); ANION GAP 8 mmol/L (5-15); BILIRUBIN,TOTAL 1.1 mg/dL (0.2-1.0); CHOL/HDL RATIO 5.5; CHOLESTEROL, TOTAL 61 mg/dL (140-239); CREATININE 0.73 mg/dL (0.55-1.02); HDL CHOL % 18 % (28-40); HDL CHOLESTEROL (DIRECT) 11 mg/dL (40-60); LDL CHOLESTEROL,CALCULATED 29 mg/dL (54-169); LDL/HDL RATIO 2.6 (0.5-3.0); TRIGLYCERIDES 103 mg/dL (50-200); VLDL CHOLESTEROL 21 mg/dL (0-25)
[2018-01-15 05:01] LABS: MD YES
[2018-01-15 05:05] LABS: ANISOCYTOSIS 1+; BAND#(MANUAL) 2.09 x10^3/uL; BANDS%(MANUAL) 17 % (0-7); LYMPH#(MANUAL) 0.98 x10^3/uL (1-3.4); LYMPHS% (MANUAL) 8 % (22-44); MICROCYTOSIS 1+; MONOS#(MANUAL) 0.12 x10^3/uL (0.3-2.7); MONOS% (MANUAL) 1 % (2-9); SEGS% (MANUAL) 74 % (42-75)
[2018-01-15 05:06] LABS: <PLATELET ESTIMATE> ADEQUATE; <PLT MORPHOLOGY> NORMAL PLT MORPH; OVALOCYTES 1+; POLYCHROMASIA 1+
[2018-01-15] MEDS: HEPARIN 5,000 UNITS/ML, 1ML SQ SCH ×3 (05:53→22:24)
[2018-01-15] MEDS: INSULIN LISPRO 100 UNITS/ML, PEN SQ-INSULIN SCH ×4 (05:56→21:00)
[2018-01-15] MEDS: POTASSIUM CHLORIDE 20 MEQ TAB.ER.PRT PO SCH ×2 (07:51→16:41)
[2018-01-15] MEDS: GABAPENTIN 300 MG CAPSULE PO SCH ×3 (07:51→22:24)
[2018-01-15] MEDS: MULTIVITAMIN 1 TABLET PO SCH (07:51)
[2018-01-15] MEDS: FERROUS SULFATE 325 MG TABLET PO SCH ×3 (07:51→16:41)
[2018-01-15] MEDS: FOLIC ACID 1 MG TABLET PO SCH (07:52)
[2018-01-15] MEDS: THIAMINE 100MG TABLET PO SCH (07:52)
[2018-01-15 11:07] VITALS: BP 149/68
[2018-01-15 19:57] VITALS: BP 172/75
[2018-01-15] MEDS: SERTRALINE 100MG TABLET PO SCH (21:00)
[2018-01-15] MEDS: HYDROcodone/APAP 5/325 TABLET PO PRN (23:44)
[2018-01-15 23:53] VITALS: BP 164/80
[2018-01-16 01:25] VITALS: BP 151/71
[2018-01-16] MEDS: PIPERACILLIN/TAZO/PMX 3.375GM 50 ML IV SCH ×4 (02:20→20:43)
[2018-01-16] MEDS: HYDROcodone/APAP 5/325 TABLET PO PRN (05:12)
[2018-01-16] MEDS: VANCOMYCIN 50 MG/ML ORAL SUSP PO SCH ×4 (06:06→22:47)
[2018-01-16] MEDS: HEPARIN 5,000 UNITS/ML, 1ML SQ SCH ×3 (06:09→22:47)
[2018-01-16] MEDS: INSULIN LISPRO 100 UNITS/ML, PEN SQ-INSULIN SCH (06:37)
[2018-01-16] MEDS: ACETAMINOPHEN 325 MG TABLET PO PRN (06:47)
[2018-01-16 07:44] VITALS: BP 177/77
[2018-01-16 08:01] LABS: MEAN CORPUSCULAR HEMOGLOBIN 30.1 pg (27.0-34.8); MEAN CORPUSCULAR HGB CONC 32.4 g/dL (32.4-35.8); MEAN CORPUSCULAR VOLUME 92.7 fL (80-100); MEAN PLATELET VOLUME 8.8 fL (7.4-10.4); PLATELET COUNT 206 x10^3/uL (130-400); RED BLOOD COUNT 4.11 x10^6/uL (3.82-5.3); RED CELL DISTRIBUTION WIDTH 18.1 % (9.6-15.2)
[2018-01-16 08:04] LABS: ANION GAP 8 mmol/L (5-15); CALCIUM 8.1 mg/dL (8.5-10.1); CHLORIDE 114 mmol/L (98-107)
[2018-01-16] MEDS: hydrALAzine 20 MG/ML, 1ML IVPush PRN (08:12)
[2018-01-16] MEDS: GABAPENTIN 300 MG CAPSULE PO SCH ×3 (08:12→20:43)
[2018-01-16] MEDS: MULTIVITAMIN 1 TABLET PO SCH (08:12)
[2018-01-16] MEDS: FERROUS SULFATE 325 MG TABLET PO SCH ×3 (08:12→18:38)
[2018-01-16] MEDS: FOLIC ACID 1 MG TABLET PO SCH (08:12)
[2018-01-16] MEDS: THIAMINE 100MG TABLET PO SCH (08:13)
[2018-01-16 08:23] LABS: BASOPHILS % (AUTO) 0 % (0-1); EOSINOPHILS % (AUTO) 1 % (1-7); LYMPHOCYTES # (AUTO) 1.22 x10^3/uL (1-3.4); LYMPHOCYTES % (AUTO) 10 % (22-44); MD SCAN; MONOCYTES # (AUTO) 0.04 x10^3/uL (0.2-0.8); MONOCYTES % (AUTO) 0 % (2-9); NEUTROPHILS # (AUTO) 10.64 x10^3/uL (1.8-6.8); NEUTROPHILS % (AUTO) 89 % (42-75)
[2018-01-16] MEDS: CALCIUM CARBONATE 500 MG TAB.CHEW PO PRN ×2 (11:20→20:03)
[2018-01-16 11:58] LABS: HCT (SEDRATE) 38.1 % (34.6-47.8)
[2018-01-16 12:15] VITALS: BP 157/78
[2018-01-16] MEDS: VANCOMYCIN 1,700 MG in SODIUM CHLORIDE 0.9% 250 ML IV SCH ×2 (12:22→15:55)
[2018-01-16] MEDS: OXYcodone IR 5MG TABLET PO PRN ×2 (13:05→20:03)
[2018-01-16] MEDS ORDERED: GADOBUTROL 7.5 MMOL/7.5 ML PFS ONE (14:00)
[2018-01-16] MEDS ORDERED: FUROSEMIDE 40 MG/4 ML ONE (15:49)
[2018-01-16] MEDS ORDERED: FUROSEMIDE 40 MG/4 ML IV ONE (16:00)
[2018-01-16 16:25] LABS: TROPONIN I 0.146 ng/mL (0.000-0.045)
[2018-01-16] MEDS: SERTRALINE 100MG TABLET PO SCH (20:43)
[2018-01-16 21:16] LABS: TROPONIN I 0.154 ng/mL (0.000-0.045)
[2018-01-17] MEDS: OXYcodone IR 5MG TABLET PO PRN ×2 (01:43→08:46)
[2018-01-17] MEDS: PIPERACILLIN/TAZO/PMX 3.375GM 50 ML IV SCH ×2 (02:01→08:59)
[2018-01-17 04:28] LABS: MEAN CORPUSCULAR HEMOGLOBIN 30.4 pg (27.0-34.8); MEAN CORPUSCULAR HGB CONC 32.5 g/dL (32.4-35.8); MEAN CORPUSCULAR VOLUME 93.4 fL (80-100); MEAN PLATELET VOLUME 8.7 fL (7.4-10.4); PLATELET COUNT 208 x10^3/uL (130-400); RED BLOOD COUNT 3.97 x10^6/uL (3.82-5.3)
[2018-01-17 04:41] LABS: ALANINE AMINOTRANSFERASE 17 U/L (12-78); ALBUMIN 1.4 g/dL (3.4-5.0); ANION GAP 6 mmol/L (5-15); CALCIUM 7.8 mg/dL (8.5-10.1); CHLORIDE 111 mmol/L (98-107)
[2018-01-17 04:42] LABS: MD YES
[2018-01-17 04:44] LABS: ALKALINE PHOSPHATASE 167 U/L (45-117); BILIRUBIN,TOTAL 0.8 mg/dL (0.2-1.0); CREATININE 0.69 mg/dL (0.55-1.02); TOTAL PROTEIN 6.1 g/dL (6.4-8.2)
[2018-01-17 04:45] LABS: ANISOCYTOSIS 1+; BAND#(MANUAL) 0.26 x10^3/uL; BANDS%(MANUAL) 2 % (0-7); LYMPH#(MANUAL) 1.03 x10^3/uL (1-3.4); LYMPHS% (MANUAL) 8 % (22-44); MONOS#(MANUAL) 0.77 x10^3/uL (0.3-2.7); MONOS% (MANUAL) 6 % (2-9); NRBC % (MANUAL) 1 % (0-1); SEG#(MANUAL) 10.84 x10^3/uL (1.8-6.8); SEGS% (MANUAL) 84 % (42-75)
[2018-01-17 04:46] LABS: OVALOCYTES 1+; POLYCHROMASIA 1+
[2018-01-17 04:47] LABS: <PLATELET ESTIMATE> ADEQUATE; <PLT MORPHOLOGY> NORMAL PLT MORPH
[2018-01-17] MEDS: HEPARIN 5,000 UNITS/ML, 1ML SQ SCH ×3 (05:25→22:46)
[2018-01-17] MEDS: VANCOMYCIN 50 MG/ML ORAL SUSP PO SCH ×4 (05:25→22:51)
[2018-01-17] MEDS: ALBUTEROL SULFATE 2.5 MG/3 ML NPPB SCH ×5 (07:00→22:18)
[2018-01-17] MEDS: SODIUM BICARBONATE 4.2%, 5ML NPPB SCH ×5 (07:00→23:00)
[2018-01-17] MEDS ORDERED: MIDAZOLAM 1 MG/ML, 5ML IVPush ONE (08:12)
[2018-01-17] MEDS ORDERED: ETOMIDATE 20 MG/10 ML IVPush ONE (08:17)
[2018-01-17] MEDS ORDERED: LIDOCAINE-MPF 1%, 2ML ENDO PRN (08:30)
[2018-01-17] MEDS: THIAMINE 100MG TABLET PO SCH (08:41)
[2018-01-17] MEDS: FERROUS SULFATE 325 MG TABLET PO SCH (08:42)
[2018-01-17] MEDS: MULTIVITAMIN 1 TABLET PO SCH (08:42)
[2018-01-17] MEDS: GABAPENTIN 300 MG CAPSULE PO SCH ×3 (08:42→20:52)
[2018-01-17] MEDS: FOLIC ACID 1 MG TABLET PO SCH (08:42)
[2018-01-17] MEDS: PROPOFOL 100 ML IV PRN ×3 (08:59→20:52)
[2018-01-17] MEDS ORDERED: SODIUM CHLORIDE 0.9% 1,000ML IVBOLUS ONE (09:00)
[2018-01-17] MEDS: VANCOMYCIN 1,700 MG in SODIUM CHLORIDE 0.9% 250 ML IV SCH (09:08)
[2018-01-17 09:57] LABS: MICROSCOPIC INDICATED
[2018-01-17 10:09] LABS: CULTURE INDICATED? NO
[2018-01-17] MEDS: SODIUM CHLORIDE 0.9% 1,000 ML IV SCH ×2 (11:58→16:42)
[2018-01-17] MEDS ORDERED: ETOMIDATE 40 MG/20 ML ONE (12:00)
[2018-01-17] MEDS ORDERED: PROPOFOL 10 MG/ML, 100ML IV ONE (12:00)
[2018-01-17] MEDS ORDERED: SODIUM CHLORIDE 0.9%, 500ML IVBOLUS ONE (12:00)
[2018-01-17] MEDS ORDERED: MIDAZOLAM 1 MG/ML, 5ML ONE (12:00)
[2018-01-17] MEDS: FERROUS SULFATE 220 MG/5 ML ORAL SOL NG SCH ×2 (12:00→16:35)
[2018-01-17] MEDS: MEROPENEM 1 GM in SODIUM CHLORIDE 0.9% 100 ML IV SCH ×2 (15:22→22:46)
[2018-01-17] MEDS: NOREPINEPHRINE 4 MG in SODIUM CHLORIDE 0.9% 246 ML IV PRN (15:23)
[2018-01-17] MEDS ORDERED: LACTATED RINGERS 500 ML IVBOLUS ONE (16:30)
[2018-01-17] MEDS: SERTRALINE 100MG TABLET PO SCH (20:52)
[2018-01-18] MEDS: OXYcodone IR 5MG TABLET PO PRN ×2 (01:31→09:20)
[2018-01-18] MEDS: SODIUM CHLORIDE 0.9% 1,000 ML IV SCH ×3 (02:05→23:21)
[2018-01-18] MEDS: ALBUTEROL SULFATE 2.5 MG/3 ML NPPB SCH ×6 (03:00→23:00)
[2018-01-18] MEDS: VANCOMYCIN 1,700 MG in SODIUM CHLORIDE 0.9% 250 ML IV SCH (03:08)
[2018-01-18] MEDS: SODIUM BICARBONATE 4.2%, 5ML NPPB SCH ×2 (03:48→04:46)
[2018-01-18 04:00] VITALS: BP 104/40
[2018-01-18 04:13] LABS: MEAN CORPUSCULAR HEMOGLOBIN 30.8 pg (27.0-34.8); MEAN CORPUSCULAR HGB CONC 33.3 g/dL (32.4-35.8); MEAN CORPUSCULAR VOLUME 92.7 fL (80-100); MEAN PLATELET VOLUME 8.7 fL (7.4-10.4); PLATELET COUNT 196 x10^3/uL (130-400); RED BLOOD COUNT 3.41 x10^6/uL (3.82-5.3); RED CELL DISTRIBUTION WIDTH 18.2 % (9.6-15.2)
[2018-01-18 04:14] LABS: MD YES
[2018-01-18 04:24] LABS: ANION GAP 9 mmol/L (5-15); CALCIUM 7.4 mg/dL (8.5-10.1); CHLORIDE 114 mmol/L (98-107); CREATININE 0.72 mg/dL (0.55-1.02)
[2018-01-18 04:26] LABS: ANISOCYTOSIS 1+; BAND#(MANUAL) 0.28 x10^3/uL; BANDS%(MANUAL) 2 % (0-7); EOS#(MANUAL) 0.56 x10^3/uL (0.0-0.4); EOS% (MANUAL) 4 % (1-7); LYMPH#(MANUAL) 1.13 x10^3/uL (1-3.4); LYMPHS% (MANUAL) 8 % (22-44); MONOS#(MANUAL) 0.56 x10^3/uL (0.3-2.7); MONOS% (MANUAL) 4 % (2-9); MYELOCYTES# (MANUAL) 0.28 x10^3/uL (0-0); MYELOCYTES% (MANUAL) 2 % (0-0); NRBC % (MANUAL) 1 % (0-1); POLYCHROMASIA 1+; SEG#(MANUAL) 11.28 x10^3/uL (1.8-6.8); SEGS% (MANUAL) 80 % (42-75)
[2018-01-18 04:27] LABS: <PLATELET ESTIMATE> ADEQUATE; <PLT MORPHOLOGY> NORMAL PLT MORPH; OVALOCYTES 1+
[2018-01-18] MEDS: VANCOMYCIN 50 MG/ML ORAL SUSP PO SCH ×4 (05:19→22:08)
[2018-01-18] MEDS: HEPARIN 5,000 UNITS/ML, 1ML SQ SCH ×3 (05:19→22:07)
[2018-01-18] MEDS: PROPOFOL 100 ML IV PRN (05:20)
[2018-01-18] MEDS ORDERED: POTASSIUM CHLORIDE 10% 40 MEQ/30 ML UDC PO ONE (07:00)
[2018-01-18] MEDS ORDERED: MAGNESIUM SULFATE PMX 4GM/100M 100 ML IV ONE (07:00)
[2018-01-18] MEDS: MEROPENEM 1 GM in SODIUM CHLORIDE 0.9% 100 ML IV SCH (07:06)
[2018-01-18] MEDS: FENTANYL PF 100 MCG/2ML IVPush PRN ×5 (08:40→22:08)
[2018-01-18] MEDS ORDERED: MORPHINE SULFATE 4 MG/ML, 1ML IV PRN (09:00)
[2018-01-18] MEDS: MULTIVITAMIN 1 TABLET PO SCH (09:19)
[2018-01-18] MEDS: THIAMINE 100MG TABLET PO SCH (09:20)
[2018-01-18] MEDS: FOLIC ACID 1 MG TABLET PO SCH (09:20)
[2018-01-18] MEDS: GABAPENTIN 300 MG CAPSULE PO SCH ×3 (09:20→22:07)
[2018-01-18] MEDS: FERROUS SULFATE 220 MG/5 ML ORAL SOL NG SCH ×3 (09:23→17:46)
[2018-01-18] MEDS: CEFUROXIME 1.5 GM in SODIUM CHLORIDE 0.9% 100 ML IV SCH ×2 (11:21→20:17)
[2018-01-18] MEDS: SERTRALINE 100MG TABLET PO SCH (21:00)
[2018-01-19] MEDS: ALBUTEROL SULFATE 2.5 MG/3 ML NPPB SCH ×6 (03:00→22:44)
[2018-01-19 04:00] VITALS: BP 129/55
[2018-01-19] MEDS: CEFUROXIME 1.5 GM in SODIUM CHLORIDE 0.9% 50 ML IV SCH ×3 (04:30→21:04)
[2018-01-19] MEDS: VANCOMYCIN 50 MG/ML ORAL SUSP PO SCH ×4 (04:31→23:17)
[2018-01-19] MEDS: FENTANYL PF 100 MCG/2ML IVPush PRN ×4 (04:45→23:54)
[2018-01-19 05:08] LABS: MEAN CORPUSCULAR HEMOGLOBIN 30.3 pg (27.0-34.8); MEAN CORPUSCULAR HGB CONC 32.5 g/dL (32.4-35.8); MEAN CORPUSCULAR VOLUME 93.2 fL (80-100); MEAN PLATELET VOLUME 8.7 fL (7.4-10.4); PLATELET COUNT 228 x10^3/uL (130-400)
[2018-01-19 05:29] LABS: CHLORIDE 117 mmol/L (98-107)
[2018-01-19 05:36] LABS: ANION GAP 10 mmol/L (5-15); CALCIUM 7.3 mg/dL (8.5-10.1); CREATININE 0.83 mg/dL (0.55-1.02)
[2018-01-19 05:41] LABS: MD YES
[2018-01-19 05:44] LABS: <PLATELET ESTIMATE> ADEQUATE; <PLT MORPHOLOGY> NORMAL PLT MORPH; ANISOCYTOSIS 1+; BANDS%(MANUAL) 1 % (0-7); EOS% (MANUAL) 1 % (1-7); LYMPHS% (MANUAL) 10 % (22-44); METAMYELOCYTES% (MANUAL) 2 % (0-1); MONOS% (MANUAL) 2 % (2-9); NRBC % (MANUAL) 1 % (0-1); POLYCHROMASIA 1+; SEGS% (MANUAL) 84 % (42-75)
[2018-01-19] MEDS: HEPARIN 5,000 UNITS/ML, 1ML SQ SCH ×3 (06:36→23:17)
[2018-01-19] MEDS ORDERED: CEFUROXIME 1.5 GM in SODIUM CHLORIDE 0.9% 50 ML IV SCH (07:00)
[2018-01-19] MEDS: SODIUM CHLORIDE 0.9% 1,000 ML IV SCH ×2 (08:21→13:00)
[2018-01-19] MEDS ORDERED: FUROSEMIDE 40 MG/4 ML IV ONE (09:30)
[2018-01-19] MEDS ORDERED: POTASSIUM CHLORIDE 20 MEQ TAB.ER.PRT PO ONE (09:30)
[2018-01-19] MEDS: MULTIVITAMIN 1 TABLET PO SCH (09:33)
[2018-01-19] MEDS: GABAPENTIN 300 MG CAPSULE PO SCH ×3 (09:33→21:05)
[2018-01-19] MEDS: THIAMINE 100MG TABLET PO SCH (09:33)
[2018-01-19] MEDS: FOLIC ACID 1 MG TABLET PO SCH (09:33)
[2018-01-19] MEDS: FERROUS SULFATE 220 MG/5 ML ORAL SOL NG SCH ×3 (09:42→17:00)
[2018-01-19] MEDS: OXYcodone IR 5MG TABLET PO PRN (13:12)
[2018-01-19] MEDS: SERTRALINE 100MG TABLET PO SCH (21:00)
[2018-01-20] MEDS: ALBUTEROL SULFATE 2.5 MG/3 ML NPPB SCH ×6 (03:00→23:00)
[2018-01-20 04:00] VITALS: BP 165/66
[2018-01-20] MEDS: VANCOMYCIN 50 MG/ML ORAL SUSP PO SCH ×4 (05:00→22:34)
[2018-01-20] MEDS: CEFUROXIME 1.5 GM in SODIUM CHLORIDE 0.9% 50 ML IV SCH (05:00)
[2018-01-20] MEDS: FENTANYL PF 100 MCG/2ML IVPush PRN ×2 (05:00→08:34)
[2018-01-20 05:43] LABS: MEAN CORPUSCULAR HEMOGLOBIN 30.2 pg (27.0-34.8); MEAN CORPUSCULAR HGB CONC 32.9 g/dL (32.4-35.8); MEAN CORPUSCULAR VOLUME 91.6 fL (80-100); MEAN PLATELET VOLUME 8.5 fL (7.4-10.4); PLATELET COUNT 259 x10^3/uL (130-400); RED BLOOD COUNT 3.76 x10^6/uL (3.82-5.3); RED CELL DISTRIBUTION WIDTH 18.1 % (9.6-15.2)
[2018-01-20 05:53] LABS: CHLORIDE 118 mmol/L (98-107)
[2018-01-20 05:58] LABS: ANION GAP 10 mmol/L (5-15); CALCIUM 7.9 mg/dL (8.5-10.1); CREATININE 0.77 mg/dL (0.55-1.02); TRIGLYCERIDES 131 mg/dL (50-200)
[2018-01-20] MEDS: HEPARIN 5,000 UNITS/ML, 1ML SQ SCH ×3 (06:01→22:17)
[2018-01-20 06:34] LABS: MD YES
[2018-01-20] MEDS: hydrALAzine 20 MG/ML, 1ML IVPush PRN ×2 (06:37→09:54)
[2018-01-20 06:44] LABS: <PLATELET ESTIMATE> ADEQUATE; <PLT MORPHOLOGY> NORMAL PLT MORPH; ANISOCYTOSIS 1+; BAND#(MANUAL) 1.06 x10^3/uL; BANDS%(MANUAL) 4 % (0-7); LYMPH#(MANUAL) 0.53 x10^3/uL (1-3.4); LYMPHS% (MANUAL) 2 % (22-44); MONOS#(MANUAL) 1.06 x10^3/uL (0.3-2.7); MONOS% (MANUAL) 4 % (2-9); POLYCHROMASIA 1+; SEG#(MANUAL) 23.76 x10^3/uL (1.8-6.8); SEGS% (MANUAL) 90 % (42-75); TOXIC GRAN 1+
[2018-01-20] MEDS ORDERED: FUROSEMIDE 40 MG/4 ML IV ONE (08:30)
[2018-01-20] MEDS: FERROUS SULFATE 220 MG/5 ML ORAL SOL NG SCH ×3 (08:34→16:22)
[2018-01-20] MEDS: MULTIVITAMIN 1 TABLET PO SCH (08:35)
[2018-01-20] MEDS: GABAPENTIN 300 MG CAPSULE PO SCH ×3 (08:35→20:48)
[2018-01-20] MEDS: THIAMINE 100MG TABLET PO SCH (08:35)
[2018-01-20] MEDS: FOLIC ACID 1 MG TABLET PO SCH (08:40)
[2018-01-20] MEDS: PROPOFOL 100 ML IV PRN ×4 (10:26→22:30)
[2018-01-20] MEDS: OXYcodone IR 5MG TABLET PO PRN (10:31)
[2018-01-20] MEDS: CEFEPIME 2 GM in DEXTROSE 5% 100 ML IV SCH ×2 (11:31→16:23)
[2018-01-20] MEDS: FUROSEMIDE 40 MG/4 ML IV SCH (15:45)
[2018-01-20] MEDS: POTASSIUM CHLORIDE 20 MEQ TAB.ER.PRT PO SCH (15:45)
[2018-01-20] MEDS: SODIUM CHLORIDE 0.9% 1,000 ML IV SCH (15:48)
[2018-01-20] MEDS: SERTRALINE 100MG TABLET PO SCH (20:48)
[2018-01-21] MEDS: CEFEPIME 2 GM in DEXTROSE 5% 100 ML IV SCH ×4 (00:34→16:45)
[2018-01-21] MEDS: ALBUTEROL SULFATE 2.5 MG/3 ML NPPB SCH ×6 (02:36→22:40)
[2018-01-21] MEDS: PROPOFOL 100 ML IV PRN (03:48)
[2018-01-21 04:00] VITALS: BP 122/47
[2018-01-21 04:28] LABS: MEAN CORPUSCULAR HEMOGLOBIN 30.4 pg (27.0-34.8); MEAN CORPUSCULAR HGB CONC 32.8 g/dL (32.4-35.8); MEAN CORPUSCULAR VOLUME 92.7 fL (80-100); MEAN PLATELET VOLUME 8.8 fL (7.4-10.4); PLATELET COUNT 235 x10^3/uL (130-400); RED BLOOD COUNT 3.58 x10^6/uL (3.82-5.3); RED CELL DISTRIBUTION WIDTH 18.5 % (9.6-15.2)
[2018-01-21 04:32] LABS: ANION GAP 8 mmol/L (5-15); CALCIUM 7.9 mg/dL (8.5-10.1); CHLORIDE 120 mmol/L (98-107)
[2018-01-21 04:33] LABS: CREATININE 1.16 mg/dL (0.55-1.02)
[2018-01-21] MEDS: VANCOMYCIN 50 MG/ML ORAL SUSP PO SCH ×4 (05:28→23:14)
[2018-01-21 05:39] LABS: MD YES
[2018-01-21 05:41] LABS: BAND#(MANUAL) 0.34 x10^3/uL; BANDS%(MANUAL) 1 % (0-7); EOS#(MANUAL) 0.68 x10^3/uL (0.0-0.4); EOS% (MANUAL) 2 % (1-7); LYMPH#(MANUAL) 0.68 x10^3/uL (1-3.4); LYMPHS% (MANUAL) 2 % (22-44); METAMYELOCYTES# (MANUAL) 0.34 x10^3/uL (0-0); METAMYELOCYTES% (MANUAL) 1 % (0-1); MONOS#(MANUAL) 1.01 x10^3/uL (0.3-2.7); MONOS% (MANUAL) 3 % (2-9); SEG#(MANUAL) 30.76 x10^3/uL (1.8-6.8); SEGS% (MANUAL) 91 % (42-75); TOXIC GRAN 1+
[2018-01-21 05:42] LABS: <PLATELET ESTIMATE> ADEQUATE; <PLT MORPHOLOGY> NORMAL PLT MORPH; ANISOCYTOSIS 1+; POLYCHROMASIA 1+
[2018-01-21] MEDS: HEPARIN 5,000 UNITS/ML, 1ML SQ SCH ×3 (05:59→23:14)
[2018-01-21] MEDS: ALBUMIN HUMAN 25% 100 ML IV SCH ×2 (08:59→15:38)
[2018-01-21] MEDS: MULTIVITAMIN 1 TABLET PO SCH (08:59)
[2018-01-21] MEDS: FUROSEMIDE 40 MG/4 ML IV SCH ×2 (08:59→16:44)
[2018-01-21] MEDS: FOLIC ACID 1 MG TABLET PO SCH (09:00)
[2018-01-21] MEDS: POTASSIUM CHLORIDE 20 MEQ TAB.ER.PRT PO SCH ×2 (09:00→16:44)
[2018-01-21] MEDS: THIAMINE 100MG TABLET PO SCH (09:00)
[2018-01-21] MEDS: GABAPENTIN 300 MG CAPSULE PO SCH ×3 (09:00→21:04)
[2018-01-21] MEDS: FERROUS SULFATE 220 MG/5 ML ORAL SOL NG SCH ×3 (09:01→16:44)
[2018-01-21] MEDS: OXYcodone IR 5MG TABLET PO PRN (11:49)
[2018-01-21] MEDS: SODIUM CHLORIDE 0.9% 1,000 ML IV SCH (13:20)
[2018-01-21 17:55] LABS: FIO2 70 %
[2018-01-21] MEDS: SERTRALINE 100MG TABLET PO SCH (21:04)
[2018-01-22] MEDS: CEFEPIME 2 GM in DEXTROSE 5% 100 ML IV SCH ×3 (00:46→17:35)
[2018-01-22] MEDS: ALBUTEROL SULFATE 2.5 MG/3 ML NPPB SCH ×6 (02:15→22:45)
[2018-01-22 04:00] VITALS: BP 166/76
[2018-01-22 04:45] LABS: MEAN CORPUSCULAR HEMOGLOBIN 30.8 pg (27.0-34.8); MEAN CORPUSCULAR VOLUME 93.3 fL (80-100); PLATELET COUNT 194 x10^3/uL (130-400); RED BLOOD COUNT 3.38 x10^6/uL (3.82-5.3); RED CELL DISTRIBUTION WIDTH 17.6 % (9.6-15.2)
[2018-01-22 04:46] LABS: ANION GAP 8 mmol/L (5-15); CALCIUM 7.7 mg/dL (8.5-10.1); CHLORIDE 121 mmol/L (98-107); CREATININE 0.97 mg/dL (0.55-1.02)
[2018-01-22] MEDS: ALBUMIN HUMAN 25% 100 ML IV SCH ×2 (05:34→18:13)
[2018-01-22] MEDS: OXYcodone IR 5MG TABLET PO PRN ×3 (05:34→21:14)
[2018-01-22] MEDS: VANCOMYCIN 50 MG/ML ORAL SUSP PO SCH ×4 (05:34→23:12)
[2018-01-22 05:38] LABS: MD YES
[2018-01-22 05:41] LABS: ANISOCYTOSIS 1+; BANDS%(MANUAL) 1 % (0-7); LYMPHS% (MANUAL) 1 % (22-44); MONOS% (MANUAL) 2 % (2-9); POLYCHROMASIA 1+; SEGS% (MANUAL) 96 % (42-75)
[2018-01-22 05:43] LABS: <PLATELET ESTIMATE> ADEQUATE; <PLT MORPHOLOGY> NORMAL PLT MORPH
[2018-01-22] MEDS: HEPARIN 5,000 UNITS/ML, 1ML SQ SCH ×3 (06:36→23:18)
[2018-01-22] MEDS: MULTIVITAMIN 1 TABLET PO SCH (08:05)
[2018-01-22] MEDS: THIAMINE 100MG TABLET PO SCH (08:05)
[2018-01-22] MEDS: FOLIC ACID 1 MG TABLET PO SCH (08:05)
[2018-01-22] MEDS: FERROUS SULFATE 220 MG/5 ML ORAL SOL NG SCH ×3 (08:05→17:36)
[2018-01-22] MEDS: POTASSIUM CHLORIDE 20 MEQ TAB.ER.PRT PO SCH ×2 (08:05→17:36)
[2018-01-22] MEDS: FUROSEMIDE 40 MG/4 ML IV SCH ×2 (08:06→18:56)
[2018-01-22] MEDS: GABAPENTIN 300 MG CAPSULE PO SCH ×3 (08:06→21:14)
[2018-01-22] MEDS ORDERED: DEXTROSE 4 GM TAB.CHEW PO PRN (08:30)
[2018-01-22] MEDS ORDERED: DEXTROSE 50%, 50ML SYRINGE IVPush PRN (08:30)
[2018-01-22] MEDS ORDERED: GLUCAGON 1 MG IM PRN (08:30)
[2018-01-22] MEDS: GUAIFENESIN 100 MG/5 ML, 10ML UDC NG SCH ×4 (09:29→21:13)
[2018-01-22] MEDS: ACETAMINOPHEN 325 MG TABLET PO PRN (09:29)
[2018-01-22] MEDS: SODIUM CHLORIDE FLUSH 10ML SYR IVF SCH ×2 (09:30→21:13)
[2018-01-22] MEDS: LABETALOL 100 MG TABLET PO SCH ×3 (10:00→22:00)
[2018-01-22] MEDS: SODIUM CHLORIDE INHALATION 3%, 4 ML NPPB SCH ×4 (11:17→22:45)
[2018-01-22] MEDS: INSULIN REGULAR 100 UNITS/ML, 3ML VIAL SQ-INSULIN SCH ×3 (11:45→21:43)
[2018-01-22] MEDS ORDERED: FENTANYL PF 100 MCG/2ML ONE (16:56)
[2018-01-22] MEDS: SODIUM CHLORIDE 0.9% 1,000 ML IV SCH (18:56)
[2018-01-22] MEDS: SERTRALINE 100MG TABLET PO SCH (21:14)
[2018-01-23] MEDS: GUAIFENESIN 100 MG/5 ML, 10ML UDC NG SCH ×6 (00:57→21:07)
[2018-01-23] MEDS: CEFEPIME 2 GM in DEXTROSE 5% 100 ML IV SCH ×3 (00:57→17:26)
[2018-01-23] MEDS: OXYcodone IR 5MG TABLET PO PRN ×2 (01:10→05:06)
[2018-01-23] MEDS: ALBUTEROL SULFATE 2.5 MG/3 ML NPPB SCH ×6 (03:07→22:36)
[2018-01-23] MEDS: SODIUM CHLORIDE INHALATION 3%, 4 ML NPPB SCH ×2 (03:07→06:51)
[2018-01-23 04:00] VITALS: BP 170/68
[2018-01-23 04:35] LABS: MEAN CORPUSCULAR HEMOGLOBIN 30.2 pg (27.0-34.8); MEAN CORPUSCULAR HGB CONC 32.1 g/dL (32.4-35.8); MEAN CORPUSCULAR VOLUME 94.1 fL (80-100); MEAN PLATELET VOLUME 9.3 fL (7.4-10.4); PLATELET COUNT 204 x10^3/uL (130-400); RED BLOOD COUNT 3.18 x10^6/uL (3.82-5.3); RED CELL DISTRIBUTION WIDTH 17.8 % (9.6-15.2)
[2018-01-23 04:47] LABS: ANION GAP 9 mmol/L (5-15); CALCIUM 7.9 mg/dL (8.5-10.1); CHLORIDE 119 mmol/L (98-107); CREATININE 0.86 mg/dL (0.55-1.02); TRIGLYCERIDES 114 mg/dL (50-200)
[2018-01-23] MEDS: VANCOMYCIN 50 MG/ML ORAL SUSP PO SCH ×4 (05:05→23:05)
[2018-01-23 05:16] LABS: MD YES
[2018-01-23 05:17] LABS: BAND#(MANUAL) 0.59 x10^3/uL; BANDS%(MANUAL) 2 % (0-7); EOS#(MANUAL) 1.48 x10^3/uL (0.0-0.4); EOS% (MANUAL) 5 % (1-7); LYMPH#(MANUAL) 1.18 x10^3/uL (1-3.4); LYMPHS% (MANUAL) 4 % (22-44); METAMYELOCYTES% (MANUAL) 1 % (0-1); MONOS#(MANUAL) 0.59 x10^3/uL (0.3-2.7); MONOS% (MANUAL) 2 % (2-9); SEG#(MANUAL) 25.46 x10^3/uL (1.8-6.8); SEGS% (MANUAL) 86 % (42-75)
[2018-01-23 05:18] LABS: ANISOCYTOSIS 1+; POLYCHROMASIA 1+
[2018-01-23 05:19] LABS: TARGET CELLS 1+
[2018-01-23 05:20] LABS: <PLATELET ESTIMATE> ADEQUATE; <PLT MORPHOLOGY> NORMAL PLT MORPH
[2018-01-23] MEDS: ALBUMIN HUMAN 25% 100 ML IV SCH (06:27)
[2018-01-23] MEDS: LABETALOL 100 MG TABLET PO SCH ×3 (06:27→22:00)
[2018-01-23] MEDS: HEPARIN 5,000 UNITS/ML, 1ML SQ SCH ×3 (06:28→23:07)
[2018-01-23] MEDS: INSULIN REGULAR 100 UNITS/ML, 3ML VIAL SQ-INSULIN SCH (06:28)
[2018-01-23] MEDS: POTASSIUM CHLORIDE 20 MEQ TAB.ER.PRT PO SCH ×2 (08:00→17:00)
[2018-01-23] MEDS: FUROSEMIDE 40 MG/4 ML IV SCH ×2 (08:03→17:27)
[2018-01-23] MEDS ORDERED: POTASSIUM CHLORIDE 10% 40 MEQ/30 ML UDC ONE ×2 (08:54→17:19)
[2018-01-23] MEDS: FERROUS SULFATE 220 MG/5 ML ORAL SOL NG SCH ×3 (09:04→17:27)
[2018-01-23] MEDS: THIAMINE 100MG TABLET PO SCH (09:05)
[2018-01-23] MEDS: MULTIVITAMIN 1 TABLET PO SCH (09:05)
[2018-01-23] MEDS: GABAPENTIN 300 MG CAPSULE PO SCH ×3 (09:05→21:08)
[2018-01-23] MEDS: FOLIC ACID 1 MG TABLET PO SCH (09:05)
[2018-01-23] MEDS: SODIUM CHLORIDE FLUSH 10ML SYR IVF SCH ×2 (09:06→21:08)
[2018-01-23] MEDS: INSULIN LISPRO 100 UNITS/ML, PEN SQ-INSULIN SCH ×3 (10:59→21:15)
[2018-01-23] MEDS: INSULIN GLARGINE 100 UNITS/ML, PEN SQ-INSULIN SCH ×2 (11:07→21:16)
[2018-01-23] MEDS: MICAFUNGIN 100 MG in SODIUM CHLORIDE 0.9% 100 ML IV SCH (12:43)
[2018-01-23] MEDS: SODIUM CHLORIDE 0.9% 1,000 ML IV SCH (13:00)
[2018-01-23] MEDS ORDERED: ACETAMINOPHEN 650 MG/20.3 ML UDC ONE (16:04)
[2018-01-23] MEDS: ACETAMINOPHEN 325 MG TABLET PO PRN ×2 (16:06→21:08)
[2018-01-23] MEDS: SERTRALINE 100MG TABLET PO SCH (21:08)
[2018-01-23] MEDS: NOREPINEPHRINE 4 MG in SODIUM CHLORIDE 0.9% 246 ML IV PRN (23:05)
[2018-01-24] MEDS: GUAIFENESIN 100 MG/5 ML, 10ML UDC NG SCH ×6 (01:29→21:23)
[2018-01-24] MEDS: CEFEPIME 2 GM in DEXTROSE 5% 100 ML IV SCH ×3 (01:29→17:14)
[2018-01-24] MEDS: ALBUTEROL SULFATE 2.5 MG/3 ML NPPB SCH ×6 (02:13→23:12)
[2018-01-24 04:00] VITALS: BP 112/53
[2018-01-24 05:01] LABS: MEAN CORPUSCULAR HEMOGLOBIN 31.2 pg (27.0-34.8); MEAN CORPUSCULAR HGB CONC 32.5 g/dL (32.4-35.8); MEAN CORPUSCULAR VOLUME 96.1 fL (80-100); MEAN PLATELET VOLUME 10.2 fL (7.4-10.4); PLATELET COUNT 223 x10^3/uL (130-400); RED BLOOD COUNT 3.15 x10^6/uL (3.82-5.3); RED CELL DISTRIBUTION WIDTH 18.1 % (9.6-15.2)
[2018-01-24 05:15] LABS: ANION GAP 6 mmol/L (5-15); CALCIUM 8.1 mg/dL (8.5-10.1); CHLORIDE 122 mmol/L (98-107)
[2018-01-24 05:16] LABS: CREATININE 0.92 mg/dL (0.55-1.02)
[2018-01-24 05:17] LABS: BASOPHILS # (AUTO) 0.02 x10^3/uL (0-0.1); BASOPHILS % (AUTO) 0 % (0-1); EOSINOPHILS % (AUTO) 2 % (1-7); LYMPHOCYTES # (AUTO) 1.23 x10^3/uL (1-3.4); LYMPHOCYTES % (AUTO) 5 % (22-44); MD SCAN; MONOCYTES # (AUTO) 0.17 x10^3/uL (0.2-0.8); MONOCYTES % (AUTO) 1 % (2-9); NEUTROPHILS # (AUTO) 22.59 x10^3/uL (1.8-6.8); NEUTROPHILS % (AUTO) 92 % (42-75)
[2018-01-24] MEDS: HEPARIN 5,000 UNITS/ML, 1ML SQ SCH ×3 (06:00→23:52)
[2018-01-24] MEDS: VANCOMYCIN 50 MG/ML ORAL SUSP PO SCH ×4 (06:00→23:53)
[2018-01-24] MEDS: LABETALOL 100 MG TABLET PO SCH ×3 (06:00→21:49)
[2018-01-24] MEDS: OXYcodone IR 5MG TABLET PO PRN (08:03)
[2018-01-24] MEDS: FUROSEMIDE 40 MG/4 ML IV SCH (08:40)
[2018-01-24] MEDS: GABAPENTIN 300 MG CAPSULE PO SCH ×3 (08:53→21:25)
[2018-01-24] MEDS: POTASSIUM CHLORIDE 20 MEQ TAB.ER.PRT PO SCH ×2 (08:54→14:42)
[2018-01-24] MEDS: SODIUM CHLORIDE FLUSH 10ML SYR IVF SCH ×2 (08:54→21:26)
[2018-01-24] MEDS: THIAMINE 100MG TABLET PO SCH (08:54)
[2018-01-24] MEDS: FOLIC ACID 1 MG TABLET PO SCH (08:54)
[2018-01-24] MEDS: FERROUS SULFATE 220 MG/5 ML ORAL SOL NG SCH ×3 (08:54→16:54)
[2018-01-24] MEDS: MULTIVITAMIN 1 TABLET PO SCH (08:54)
[2018-01-24] MEDS: FENTANYL PF 100 MCG/2ML IVPush PRN ×4 (09:03→21:25)
[2018-01-24] MEDS: INSULIN GLARGINE 100 UNITS/ML, PEN SQ-INSULIN SCH ×2 (09:04→21:49)
[2018-01-24] MEDS: INSULIN LISPRO 100 UNITS/ML, PEN SQ-INSULIN SCH ×4 (09:04→21:48)
[2018-01-24] MEDS: ALBUMIN HUMAN 25% 100 ML IV SCH ×2 (09:46→21:23)
[2018-01-24] MEDS: MICAFUNGIN 100 MG in SODIUM CHLORIDE 0.9% 100 ML IV SCH (12:09)
[2018-01-24] MEDS: SODIUM CHLORIDE 0.9% 1,000 ML IV SCH (16:54)
[2018-01-24] MEDS: SERTRALINE 100MG TABLET PO SCH (21:23)
[2018-01-25] VITALS (10 sets, daily range): BP systolic 92–138; BP diastolic 45–59
[2018-01-25] MEDS: CEFEPIME 2 GM in DEXTROSE 5% 100 ML IV SCH ×3 (01:33→17:10)
[2018-01-25] MEDS: GUAIFENESIN 100 MG/5 ML, 10ML UDC NG SCH ×6 (01:34→20:47)
[2018-01-25] MEDS: ALBUTEROL SULFATE 2.5 MG/3 ML NPPB SCH ×6 (02:19→22:08)
[2018-01-25] MEDS: FENTANYL PF 100 MCG/2ML IVPush PRN ×2 (05:13→12:31)
[2018-01-25] MEDS: HEPARIN 5,000 UNITS/ML, 1ML SQ SCH (05:30)
[2018-01-25] MEDS: LABETALOL 100 MG TABLET PO SCH ×3 (05:30→22:00)
[2018-01-25] MEDS: VANCOMYCIN 50 MG/ML ORAL SUSP PO SCH ×3 (05:34→17:15)
[2018-01-25 05:44] LABS: ALBUMIN 2.2 g/dL (3.4-5.0); ANION GAP 7 mmol/L (5-15); CALCIUM 7.7 mg/dL (8.5-10.1); CHLORIDE 126 mmol/L (98-107); CREATININE 0.91 mg/dL (0.55-1.02)
[2018-01-25 05:48] LABS: MEAN CORPUSCULAR HGB CONC 32.2 g/dL (32.4-35.8); MEAN CORPUSCULAR VOLUME 96.4 fL (80-100); MEAN PLATELET VOLUME 10.7 fL (7.4-10.4); PLATELET COUNT 234 x10^3/uL (130-400); RED BLOOD COUNT 2.49 x10^6/uL (3.82-5.3); RED CELL DISTRIBUTION WIDTH 17.8 % (9.6-15.2)
[2018-01-25 06:17] LABS: MD YES
[2018-01-25 06:18] LABS: BAND#(MANUAL) 0.22 x10^3/uL; BANDS%(MANUAL) 1 % (0-7); METAMYELOCYTES# (MANUAL) 0.22 x10^3/uL (0-0); METAMYELOCYTES% (MANUAL) 1 % (0-1)
[2018-01-25 06:19] LABS: ANISOCYTOSIS 1+; EOS#(MANUAL) 0.43 x10^3/uL (0.0-0.4); EOS% (MANUAL) 2 % (1-7); LYMPH#(MANUAL) 1.94 x10^3/uL (1-3.4); LYMPHS% (MANUAL) 9 % (22-44); MONOS#(MANUAL) 0.43 x10^3/uL (0.3-2.7); MONOS% (MANUAL) 2 % (2-9); POLYCHROMASIA 1+; SEG#(MANUAL) 18.36 x10^3/uL (1.8-6.8); SEGS% (MANUAL) 85 % (42-75); TARGET CELLS 1+
[2018-01-25 06:20] LABS: <PLATELET ESTIMATE> ADEQUATE; LARGE PLATELETS 1+
[2018-01-25] MEDS: PROPOFOL 100 ML IV PRN (08:18)
[2018-01-25] MEDS: ACETAMINOPHEN 325 MG TABLET PO PRN (08:19)
[2018-01-25] MEDS: INSULIN LISPRO 100 UNITS/ML, PEN SQ-INSULIN SCH ×4 (08:33→20:52)
[2018-01-25] MEDS: POTASSIUM CHLORIDE 20 MEQ TAB.ER.PRT PO SCH (08:34)
[2018-01-25] MEDS: INSULIN GLARGINE 100 UNITS/ML, PEN SQ-INSULIN SCH ×2 (08:35→20:51)
[2018-01-25] MEDS: FERROUS SULFATE 220 MG/5 ML ORAL SOL NG SCH ×3 (09:00→16:36)
[2018-01-25] MEDS: MULTIVITAMIN 1 TABLET PO SCH (09:00)
[2018-01-25] MEDS: GABAPENTIN 300 MG CAPSULE PO SCH ×3 (09:00→20:47)
[2018-01-25] MEDS: SODIUM CHLORIDE FLUSH 10ML SYR IVF SCH ×2 (09:00→20:48)
[2018-01-25] MEDS: THIAMINE 100MG TABLET PO SCH (09:00)
[2018-01-25] MEDS: FOLIC ACID 1 MG TABLET PO SCH (09:01)
[2018-01-25] MEDS: NOREPINEPHRINE 4 MG in SODIUM CHLORIDE 0.9% 246 ML IV PRN ×2 (09:19→16:30)
[2018-01-25] MEDS ORDERED: LIDOCAINE 2%, 2ML ONE (09:57)
[2018-01-25] MEDS: MICAFUNGIN 100 MG in SODIUM CHLORIDE 0.9% 100 ML IV SCH (12:03)
[2018-01-25] MEDS: ALBUMIN HUMAN 25% 100 ML IV SCH ×2 (12:03→20:47)
[2018-01-25 16:36] LABS: MEAN CORPUSCULAR HGB CONC 32.6 g/dL (32.4-35.8); MEAN CORPUSCULAR VOLUME 95.1 fL (80-100); MEAN PLATELET VOLUME 10.7 fL (7.4-10.4); PLATELET COUNT 188 x10^3/uL (130-400); RED BLOOD COUNT 2.52 x10^6/uL (3.82-5.3)
[2018-01-25 16:46] LABS: ANION GAP 6 mmol/L (5-15); CALCIUM 7.4 mg/dL (8.5-10.1); CHLORIDE 131 mmol/L (98-107); CREATININE 1.01 mg/dL (0.55-1.02)
[2018-01-25 17:00] LABS: MD YES
[2018-01-25 17:02] LABS: EOS#(MANUAL) 0.41 x10^3/uL (0.0-0.4); EOS% (MANUAL) 2 % (1-7); LYMPH#(MANUAL) 2.07 x10^3/uL (1-3.4); LYMPHS% (MANUAL) 10 % (22-44); MONOS#(MANUAL) 1.04 x10^3/uL (0.3-2.7); MONOS% (MANUAL) 5 % (2-9); MYELOCYTES# (MANUAL) 0.21 x10^3/uL (0-0); MYELOCYTES% (MANUAL) 1 % (0-0); SEG#(MANUAL) 16.97 x10^3/uL (1.8-6.8); SEGS% (MANUAL) 82 % (42-75)
[2018-01-25 17:03] LABS: ANISOCYTOSIS 1+
[2018-01-25 17:04] LABS: <PLATELET ESTIMATE> ADEQUATE; OVALOCYTES 1+; POLYCHROMASIA 1+; TARGET CELLS 1+
[2018-01-25 17:05] LABS: LARGE PLATELETS 1+
[2018-01-25] MEDS: PANTOPRAZOLE 80 MG in SODIUM CHLORIDE 0.9% 100 ML IV SCH (17:46)
[2018-01-25] MEDS ORDERED: PANTOPRAZOLE 80 MG in SODIUM CHLORIDE 0.9% 50 ML IV ONE (18:00)
[2018-01-25] MEDS: SERTRALINE 100MG TABLET PO SCH (20:47)
[2018-01-25] MEDS: SODIUM CHLORIDE 0.9% 1,000 ML IV SCH (21:00)
[2018-01-25] MEDS ORDERED: NOREPINEPHRINE 1 MG/ML, 4ML ONE (21:54)
[2018-01-25] MEDS ORDERED: FUROSEMIDE 20 MG/2 ML IV ONE (22:00)
[2018-01-25] MEDS ORDERED: VASOPRESSIN 100 UNIT in SODIUM CHLORIDE 0.9% 495 ML IV PRN (22:30)
[2018-01-25 23:39] LABS: ANION GAP 11 mmol/L (5-15); CALCIUM 7.3 mg/dL (8.5-10.1); CHLORIDE 131 mmol/L (98-107)
[2018-01-25 23:42] LABS: CREATININE 1.33 mg/dL (0.55-1.02)
[2018-01-25] MEDS ORDERED: CALCIUM GLUCONATE IV ONE (23:45)
[2018-01-25] MEDS ORDERED: DEXTROSE 5% IV ONE (23:45)
[2018-01-26] VITALS (12 sets, daily range): BP systolic 84–134; BP diastolic 34–81
[2018-01-26] MEDS ORDERED: CALCIUM GLUCONATE 4.6 MEQ/10 ML IVPush ONE
[2018-01-26] MEDS ORDERED: SODIUM BICARB 8.4%, 50ML SYRINGE IVPush STA ×3 (00:11→05:05)
[2018-01-26] MEDS: VANCOMYCIN 50 MG/ML ORAL SUSP PO SCH ×3 (00:20→11:46)
[2018-01-26] MEDS: NOREPINEPHRINE 4 MG in SODIUM CHLORIDE 0.9% 246 ML IV PRN ×2 (00:38→02:54)
[2018-01-26] MEDS: CEFEPIME 2 GM in DEXTROSE 5% 100 ML IV SCH ×2 (01:00→10:05)
[2018-01-26] MEDS: GUAIFENESIN 100 MG/5 ML, 10ML UDC NG SCH ×4 (01:00→12:27)
[2018-01-26] MEDS: ACETAMINOPHEN 325 MG TABLET PO PRN (01:01)
[2018-01-26 01:59] LABS: ANION GAP 11 mmol/L (5-15); CHLORIDE 130 mmol/L (98-107)
[2018-01-26 02:00] LABS: CALCIUM 7.1 mg/dL (8.5-10.1)
[2018-01-26] MEDS ORDERED: DEXTROSE 50%, 50ML SYRINGE IVPush ONE ×2 (02:30)
[2018-01-26] MEDS ORDERED: INSULIN REGULAR 100 UNITS/ML, 3ML VIAL IVPush ONE ×2 (02:30)
[2018-01-26] MEDS ORDERED: CALCIUM GLUCONATE 4.6 MEQ in SODIUM CHLORIDE 0.9% 50 ML IV ONE (02:30)
[2018-01-26] MEDS ORDERED: CALCIUM GLUCONATE IV ONE (02:36)
[2018-01-26] MEDS ORDERED: DEXTROSE 5% IV ONE (02:36)
[2018-01-26] MEDS: ALBUTEROL SULFATE 2.5 MG/3 ML NPPB SCH ×3 (03:00→10:29)
[2018-01-26 04:29] LABS: ANION GAP 9 mmol/L (5-15); CALCIUM 7.2 mg/dL (8.5-10.1); CHLORIDE 132 mmol/L (98-107); CREATININE 1.55 mg/dL (0.55-1.02)
[2018-01-26 04:35] LABS: MD YES; MEAN CORPUSCULAR HGB CONC 32.9 g/dL (32.4-35.8); MEAN CORPUSCULAR VOLUME 97.3 fL (80-100); MEAN PLATELET VOLUME 11.8 fL (7.4-10.4); PLATELET COUNT 122 x10^3/uL (130-400); RED BLOOD COUNT 2.18 x10^6/uL (3.82-5.3); RED CELL DISTRIBUTION WIDTH 15.9 % (9.6-15.2)
[2018-01-26 04:38] LABS: ANISOCYTOSIS 1+; BAND#(MANUAL) 0.57 x10^3/uL; BANDS%(MANUAL) 2 % (0-7); LYMPH#(MANUAL) 3.14 x10^3/uL (1-3.4); LYMPHS% (MANUAL) 11 % (22-44); METAMYELOCYTES# (MANUAL) 0.57 x10^3/uL (0-0); METAMYELOCYTES% (MANUAL) 2 % (0-1); MONOS#(MANUAL) 1.14 x10^3/uL (0.3-2.7); MONOS% (MANUAL) 4 % (2-9); MYELOCYTES# (MANUAL) 0.29 x10^3/uL (0-0); MYELOCYTES% (MANUAL) 1 % (0-0); NRBC % (MANUAL) 1 % (0-1); POLYCHROMASIA 1+; SEGS% (MANUAL) 80 % (42-75); TARGET CELLS 1+
[2018-01-26 04:39] LABS: <PLATELET ESTIMATE> ADEQUATE; LARGE PLATELETS 1+; OVALOCYTES 1+
[2018-01-26 05:01] LABS: TRIGLYCERIDES 40 mg/dL (50-200)
[2018-01-26] MEDS ORDERED: EPINEPHRINE 2 MG in SODIUM CHLORIDE 0.9% 248 ML IV SCH (05:19)
[2018-01-26] MEDS ORDERED: NOREPINEPHRINE 4 MG in SODIUM CHLORIDE 0.9% 246 ML IV PRN (05:30)
[2018-01-26] MEDS: SODIUM BICARBONATE 8.4% 150 MEQ in DEXTROSE 5% 1,000 ML IV SCH ×2 (05:37→13:35)
[2018-01-26] MEDS: PANTOPRAZOLE 80 MG in SODIUM CHLORIDE 0.9% 100 ML IV SCH ×2 (05:37→15:07)
[2018-01-26] MEDS: NOREPINEPHRINE 8 MG in SODIUM CHLORIDE 0.9% 242 ML IV PRN ×3 (05:41→15:07)
[2018-01-26] MEDS: LABETALOL 100 MG TABLET PO SCH ×2 (05:44→13:24)
[2018-01-26] MEDS: INSULIN LISPRO 100 UNITS/ML, PEN SQ-INSULIN SCH ×2 (07:00→11:00)
[2018-01-26] MEDS: SODIUM CHLORIDE FLUSH 10ML SYR IVF SCH (08:00)
[2018-01-26] MEDS: FERROUS SULFATE 220 MG/5 ML ORAL SOL NG SCH ×2 (08:00→12:00)
[2018-01-26] MEDS: THIAMINE 100MG TABLET PO SCH (09:00)
[2018-01-26] MEDS: MULTIVITAMIN 1 TABLET PO SCH (09:00)
[2018-01-26] MEDS: INSULIN GLARGINE 100 UNITS/ML, PEN SQ-INSULIN SCH (09:00)
[2018-01-26] MEDS: FOLIC ACID 1 MG TABLET PO SCH (09:00)
[2018-01-26] MEDS: GABAPENTIN 300 MG CAPSULE PO SCH (09:00)
[2018-01-26] MEDS: EPINEPHRINE 4 MG in SODIUM CHLORIDE 0.9% 246 ML IV SCH ×2 (10:31→14:20)
[2018-01-26] MEDS: MICAFUNGIN 100 MG in SODIUM CHLORIDE 0.9% 100 ML IV SCH (11:46)
[2018-01-26] MEDS ORDERED: LORazepam 2 MG/ML, 1ML IV PRN (15:30)
[2018-01-26] MEDS ORDERED: morphine SULFATE 10 MG/ML, 1ML IV ONE (15:30)
[2018-01-26] MEDS ORDERED: MORPHINE 30MG/30ML PCA.SYR IV PRN (15:30)
[2018-01-26] MEDS ORDERED: ATROPINE OPHTH SOLN 1%, 2ML PO PRN (15:30)
[2018-01-26] MEDS ORDERED: LORazepam 2 MG/ML, 1ML IV ONE (15:30)
[2018-01-26] MEDS ORDERED: morphine SULFATE 10 MG/ML, 1ML IVPush ONE (16:00)
== END 2018-01-26 16:41 | disposition expired | DRG 853 ==
LOC: ED 04:04 → EDIP 04:33 → CCU 06:30 → 4NOR 01-15 11:03 → CCU 01-16 16:37
PROVIDERS: ADMIT Internal Medicine; ATTEND Internal Medicine
PROC: 0T9B70Z Drainage of Bladder with Drainage Device, Via Natural or Artificial Opening (ICD-10-PCS; 2018-01-14)
PROC: 5A1955Z Respiratory Ventilation, Greater than 96 Consecutive Hours (ICD-10-PCS; 2018-01-18)
PROC: 0BH17EZ Insertion of Endotracheal Airway into Trachea, Via Natural or Artificial Opening (ICD-10-PCS; 2018-01-18)
PROC: 0JBC0ZZ Excision of Pelvic Region Subcutaneous Tissue and Fascia, Open Approach (ICD-10-PCS; principal; 2018-01-22 15:45)
PROC: 30233N1 Transfusion of Nonautologous Red Blood Cells into Peripheral Vein, Percutaneous Approach (ICD-10-PCS; 2018-01-25)
PROC: 02HV33Z Insertion of Infusion Device into Superior Vena Cava, Percutaneous Approach (ICD-10-PCS; 2018-01-25)
PROC: B548ZZA Ultrasonography of Superior Vena Cava, Guidance (ICD-10-PCS; 2018-01-25)
DX: A41.01 Sepsis due to Methicillin susceptible Staphylococcus aureus (principal); E43 Unspecified severe protein-calorie malnutrition; I21.9 Acute myocardial infarction, unspecified; J96.21 Acute and chronic respiratory failure with hypoxia; M72.6 Necrotizing fasciitis; R65.21 Severe sepsis with septic shock; A04.72 Enterocolitis due to Clostridium difficile, not specified as recurrent; K55.9 Vascular disorder of intestine, unspecified; J15.9 Unspecified bacterial pneumonia; D62 Acute posthemorrhagic anemia; E87.0 Hyperosmolality and hypernatremia; N17.9 Acute kidney failure, unspecified; Z99.11 Dependence on respirator [ventilator] status; M86.9 Osteomyelitis, unspecified; T81.4XXA Infection following a procedure, initial encounter; E11.69 Type 2 diabetes mellitus with other specified complication; I50.9 Heart failure, unspecified; E87.5 Hyperkalemia; G43.909 Migraine, unspecified, not intractable, without status migrainosus; I07.1 Rheumatic tricuspid insufficiency; Z96.651 Presence of right artificial knee joint; I11.0 Hypertensive heart disease with heart failure; K74.60 Unspecified cirrhosis of liver; L89.90 Pressure ulcer of unspecified site, unspecified stage; Z30.2 Encounter for sterilization; Z51.5 Encounter for palliative care; Z82.49 Family history of ischemic heart disease and other diseases of the circulatory system; Z83.3 Family history of diabetes mellitus; Z87.891 Personal history of nicotine dependence; Z90.49 Acquired absence of other specified parts of digestive tract; Z98.51 Tubal ligation status; Y83.8 Other surgical procedures as the cause of abnormal reaction of the patient, or of later complication, without mention of misadventure at the time of the procedure; Y92.89 Other specified places as the place of occurrence of the external cause
CPT/HCPCS: 36415; 36569; 36600; 71045; 71275; 72170; 74176; 76937; 77001; 80048; 80053; 80061; 81001; 82040; 82533; 82550; 82803; 82805; 82962; 83036; 83605; 83735; 84145; 84439; 84443; 84478; 84484; 85014; 85018; 85025; 85651; 85810; 86141; 86850; 86900; 86923; 87040; 87070; 87075; 87077; 87081; 87106; 87147; 87176; 87186; 87205; 87324; 87493; 89050; 89060; 93005; 93306; 93970; 94002; 94003; 94640; 96374; 96375; A9585; J0610; J0697; J1644; J1815; J1940; J2185; J2248; J2250; J2270; J2405; J2543; J2704; J3010; J3370; J3490; J7042; J7070; J7120; J7613; P9047; Q9967; C1751; C9113; J0171; J0360; J2060; J3475; J7030; J7040; J7050; P9016